=== PATIENT | male | born 1960 | race Caucasian/White ===

== ENCOUNTER 2016-10-27 14:31 | Emergency (ER) | payer SELFPAY ==
[~2016-10-27] VITALS: Ht 182.9 cm; Wt 70.0 kg
[~2016-10-27 14:31] MED LIST: ALBU8I INH
[2016-10-27 14:33] VITALS: BP 141/93; PULSE 108; RESP 16; TEMP 98.8; O2SAT 96
[2016-10-27] MEDS ORDERED: VENTAER INH (14:44)
--- NOTE | 2016-10-27 15:14 | PD ---
HPI Chief Complaint: Foreign Body Time Seen by Provider: 15:02 Travel History International Travel<30 days: No Contact w/Intl Traveler<30days: No Traveled to known affect area: No History of Present Illness HPI 56-year-old male presents to the emergency room for evaluation of possible foreign body to his right heel. Patient states either 4 or 5 weeks ago he believes he stepped on a piece of glass in his house. Since then he has had a worsening painful lesion. Occasionally it drains purulent discharge. Patient has moderate pain worse with ambulation. He is placed a small cushion in his shoe to help alleviate the pain. He has not taken anything for symptoms. Patient went to an urgent care center and they referred him to the emergency room. He denies history of diabetes. PFSH Past Medical History Asthma: Yes COPD: Yes Diminished Hearing: No Immunizations Current: Yes ?: Not Social History Alcohol Use: Yes (5 BEERS A DAY) Tobacco Use: Yes (1PPD) Substance Use: No Allergies-Medications (Allergen,Severity, Reaction): Coded Allergies: Benzoin (Verified Allergy, Severe, 10/27/16) Reported Meds & Prescriptions Reported Meds & Active Scripts Active Cipro (Ciprofloxacin HCl) 500 Mg Tab 500 Mg PO Q12HR 7 Days Reported Ventolin Hfa 18 GM Inh (Albuterol Sulfate) 90 Mcg/Act Aer 2 Puff INH Q4H PRN Review of Systems Except as stated in HPI: all other systems reviewed are Neg Physical Exam Narrative GENERAL: Well-nourished, well-developed male in no acute distress. Afebrile. Ambulatory. SKIN: Focused skin assessment warm/dry. There is an indurated area in the right heel which measures about 2 cm in diameter. It is fluctuant but there is no pointing or drainage. There is a zone of inflammation around it but no lymphangitis. HEAD: Normocephalic. EYES: No scleral icterus. No injection or drainage. NECK: Supple, trachea midline. No JVD or lymphadenopathy. CARDIOVASCULAR: Regular rate and rhythm without murmurs, gallops, or rubs. RESPIRATORY: Breath sounds equal bilaterally. No accessory muscle use. Coarse lung sounds bilaterally. PSYCHIATRIC: No delusional thought processes. No hallucinations. Data Data Last Documented VS Vital Signs Date Time Temp Pulse Resp B/P Pulse Ox O2 Delivery O2 Flow Rate FiO2 10/27/16 14:33 98.8 108 16 141/93 96 Orders Foot, Heel Only ([id number]) (10/27/16 ) Lidocai-Epi 1%-1:100,000 Inj (Xylocaine- (10/27/16 15:45) MDM Medical Decision Making Medical Screen Exam Complete: Yes Emergency Medical Condition: Yes Medical Record Reviewed: Yes Differential Diagnosis Plantar wart versus foreign body versus abscess Narrative Course 56-year-old male presents to the emergency room for evaluation of a possible foreign body to his right heel has been present for 5 weeks after stepping on glass. It is painful. Physical exam reveals a 2 cm area of induration on the right plantar heel. X-ray shows no foreign body. Likely plantar wart but patient reports occasional purulent discharge so abscess incision and drainage will be performed. Upon incision and drainage, a large capsule was obtained. There did not appear to be any purulent drainage. A culture is obtained anyway. Patient will be discharged with empirical ciprofloxacin. Told to follow up with the laboratory sample carrier or return to the emergency room for worsening symptoms. He understands and agrees to plan. Procedures Procedure Narrative INCISION AND DRAINAGE OF ABSCESS: The area was prepped and was sterilely draped. A subcutaneous wheal of 1% lidocaine with epinephrine with a total number 1 mL was used to anesthetize the area properly. A number 11 scalpel was used to make a 1 cm incision across the area of the abscess. The abscess was drained, complex loculations were broken down, and irrigated with normal saline. Cultures were obtained. Sterile dressing applied Diagnosis Primary Impression: Plantar wart of right foot Referrals: Import Coordinator Primary Care Physician Patient Instructions: General Instructions, Plantar Wart (ED) Additional Instructions: Rest and drink plenty of fluids. Take Cipro as directed, until gone. Take with probiotics. Follow up with a primary care physician. Return to emergency room for worsening symptoms, as discussed. Scripts Ciprofloxacin (Cipro)500 Mg Bvd806 Mg PO Q12HR 7 Days Ref 0 Prov:Karolina Siddiqui MD 10/27/16 Disposition: 01 DISCHARGE HOME Condition: Stable Crystal Proctor October 27, 2016 15:14
--- NOTE | 2016-10-27 15:28 | RADHPO ---
EXAM DATE/TIME: 10/27/2016 14:57 [facility] COMPARISON: No previous studies available for comparison. INDICATIONS : Patient has pain in posterior calcaneous region. He states he thinks he stepped on glass when he brok e a door on his entertainment center and it has hurt for a month while standing. MEDICAL HISTORY : None. SURGICAL HISTORY : None. ENCOUNTER: Initial ACUITY: 1 month PAIN SCORE: 9/10 LOCATION: Right calcaneous. FINDINGS: Two view examination of the right heel demonstrates the trabecula to be intact with no evidence of fr acture. There is a normal calcaneal angle. The soft tissues are of normal thickness. CONCLUSION: No acute fracture. Caleb Hinton MD on October 27, 2016 at 15:24 Board Certified Radiologist. This report was verified electronically.
[2016-10-27] MEDS ORDERED: CIPR-9 PO (15:38)
[2016-10-27] MEDS ORDERED: LIDOCAINE 1%/EPINEPHrine 1:100,000 SOLN 20 ML VIAL INFIL ONE (15:45)
[2016-10-27 15:57] VITALS: BP 149/106; PULSE 88; RESP 18; O2SAT 95
== END 2016-10-27 15:59 | disposition home or self-care (01) ==
LOC: PHEFT 14:31
DX: B07.0 Plantar wart (principal); F17.200 Nicotine dependence, unspecified, uncomplicated; Z79.899 Other long term (current) drug therapy; Z88.8 Allergy status to other drugs, medicaments and biological substances
CPT/HCPCS: 10060; 73650; 86403; 87070; 87077; 87186

== ENCOUNTER 2017-11-24 12:21 | Emergency (ER) | payer OTHER ==
[~2017-11-24] VITALS: Ht 182.9 cm; Wt 65.1 kg
[~2017-11-24 12:21] MED LIST changes: -ALBU8I INH; +CIPR-9 PO; +VENTAER INH
[2017-11-24 12:28] VITALS: BP 173/101; PULSE 98; RESP 16; TEMP 98.2; O2SAT 99
--- NOTE | 2017-11-24 12:37 | PD ---
HPI Chief Complaint: Dizziness Time Seen by Provider: 12:35 Travel History International Travel<30 days: No Contact w/Intl Traveler<30days: No Traveled to known affect area: No History of Present Illness HPI Patient comes in complaining of generalized fatigue which is worsening and increasing over the past 2 weeks. However according to patient he has had this for at least a year in duration. However lately he has noted some abdominal pain near his right upper quadrant and suprapubic region, however this has been intermittently occurring and he normally just waits until the pain goes away on its own. Patient describes the pain as sharp, nonradiating, 8 out of 10 when it occurs, associated with some nausea but no vomiting or diarrhea. The patient does also complain of weight loss over the past couple of months which is unintentional. And gives a history of hepatitis C, which has not been treated, and the patient is concerned that this may be what is happening now. Stated allergy to benzoin, thorax, and balsam Past medical history significant for COPD, left knee arthroscopy, 1 pack a day smoker, [facility] Past Medical History Asthma: Yes COPD: Yes Diminished Hearing: No Immunizations Current: Yes Social History Alcohol Use: Yes (5 BEERS A DAY) Tobacco Use: Yes (1PPD) Substance Use: No Allergies-Medications (Allergen,Severity, Reaction): Coded Allergies: benzoin (Unverified Allergy, Severe, RASH, 11/24/17) ness balsam (Unverified Allergy, Severe, UNKNOWN PER PT, 11/24/17) storax (Unverified Allergy, Unknown, DOES NOT KNOW, 11/24/17) Reported Meds & Prescriptions Reported Meds & Active Scripts Active No Active Prescriptions or Reported Medications Review of Systems Except as stated in HPI: all other systems reviewed are Neg General / Constitutional: Positive: Weight Loss, Other (Generalized fatigue and weakness), No: Fever Eyes: No: Visual changes HENT: No: Headaches Cardiovascular: No: Chest Pain or Discomfort Respiratory: No: Shortness of Breath Gastrointestinal: Positive: Nausea Genitourinary: No: Dysuria Musculoskeletal: No: Pain Skin: No Rash Neurologic: No: Weakness Psychiatric: No: Depression Endocrine: No: Polydipsia Hematologic/Lymphatic: No: Easy Bruising Physical Exam Narrative GENERAL: Thin, emaciated appearing male SKIN: Warm and dry. HEAD: Atraumatic. Normocephalic. EYES: Pupils equal and round. No scleral icterus. No injection or drainage. ENT: No nasal bleeding or discharge. Mucous membranes pink and moist. NECK: Trachea midline. No JVD. CARDIOVASCULAR: Regular rate and rhythm. RESPIRATORY: No accessory muscle use. Clear to auscultation. Breath sounds equal bilaterally. GASTROINTESTINAL: Abdomen soft, tenderness to percussion over right upper quadrant suprapubic as well as left lower quadrant area , nondistended. MUSCULOSKELETAL: Extremities without clubbing, cyanosis, or edema. No obvious deformities. NEUROLOGICAL: Awake and alert. No obvious cranial nerve deficits. Motor grossly within normal limits. Five out of 5 muscle strength in the arms and legs. Normal speech. PSYCHIATRIC: Appropriate mood and affect; insight and judgment normal. Data Data Last Documented VS Vital Signs Date Time Temp Pulse Resp B/P (MAP) Pulse Ox O2 Delivery O2 Flow Rate FiO2 11/24/17 13:50 81 16 166/92 (116) 100 Room Air 11/24/17 12:28 98.2 Orders Orders Electrocardiogram (11/24/17 12:42) Complete Blood Count With Diff (11/24/17 12:42) Comprehensive Metabolic Panel (11/24/17 12:42) Creatine Kinase (Cpk) (11/24/17 12:42) Ckmb (Isoenzyme) Profile (11/24/17 12:42) Troponin I (11/24/17 12:42) B-Type Natriuretic Peptide (11/24/17 12:42) Prothrombin Time / Inr (Pt) (11/24/17 12:42) Act Partial Throm Time (Ptt) (11/24/17 12:42) Lipase (11/24/17 12:42) Urinalysis - C+S If Indicated (11/24/17 12:42) Ammonia (11/24/17 12:42) Thyroid Stimulating Hormone (11/24/17 12:42) Chest, Single Ap (11/24/17 12:42) Type And Screen (11/24/17 12:42) Drug Screen, Random Urine (11/24/17 12:42) Alcohol (Ethanol) (11/24/17 12:42) Salicylates (Aspirin) (11/24/17 12:42) Tylenol (Acetaminophen) (11/24/17 12:42) Iv Access Insert/Monitor (11/24/17 12:42) Ecg Monitoring (11/24/17 12:42) Oximetry (11/24/17 12:42) NPO (11/24/17 12:42) Sodium Chloride 0.9% Flush (Ns Flush) (11/24/17 12:45) Ondansetron Odt (Zofran Odt) (11/24/17 13:30) CKMB (11/24/17 13:04) CKMB% (11/24/17 13:04) Urine Culture (11/24/17 13:50) Electrocardiogram (11/24/17 14:22) Potassium, Serum (K) (11/24/17 17:22) Calcium Gluconate Inj (Calcium Gluconate (11/24/17 14:30) Insulin Human Regular Inj (Novolin R Inj (11/24/17 14:30) Sodium Bicarbonate 8.4% Inj (Sodium Bica (11/24/17 14:30) Albuterol Concentrated Neb (Albuterol Co (11/24/17 14:30) Dextrose 50% In Ti (Vial) Inj (D50w (Vi (11/24/17 14:45) Ct Abd/Pel W/O Iv Contrast (11/24/17 14:37) Urinary Catheter Insert/Apply (11/24/17 15:32) Admit To Inpatient (11/24/17 ) Code Status (11/24/17 15:35) Vital Signs (Adult) Q4H (11/24/17 15:35) Activity Oob With Assistance (11/24/17 15:35) Film Crew Member / Telemetry .CONTINUOUS (11/24/17 15:35) Diet Heart Healthy (11/24/17 Dinner) Sodium Chloride 0.9% Flush (Ns Flush) (11/24/17 15:45) Sodium Chloride 0.9% Flush (Ns Flush) (11/24/17 21:00) Acetaminophen (Tylenol) (11/24/17 15:45) Ondansetron Inj (Zofran Inj) (11/24/17 15:45) Basic Metabolic Panel (Bmp) (11/25/17 06:00) Complete Blood Count With Diff (11/25/17 06:00) Electrocardiogram (11/24/17 15:35) Pt Request For Service (11/24/17 15:35) Scd Bilateral/Knee High REINALDO.BID (11/24/17 15:35) Naloxone Inj (Narcan Inj) (11/24/17 15:45) Docusate Sodium-Senna (Elena-Colace) (11/24/17 21:00) Magnesium Hydroxide Liq (Milk Of Magnesi (11/24/17 15:45) Inpatient Certification (11/24/17 ) Consult Urology (11/24/17 ) Labs Laboratory Tests Test 11/24/17 13:04 11/24/17 13:50 White Blood Count 5.6 TH/MM3 Red Blood Count 2.92 MIL/MM3 Hemoglobin 9.3 GM/DL Hematocrit 26.5 % Mean Corpuscular Volume 90.6 FL Mean Corpuscular Hemoglobin 31.8 PG Mean Corpuscular Hemoglobin Concent 35.2 % Red Cell Distribution Width 13.1 % Platelet Count 353 TH/MM3 Mean Platelet Volume 7.8 FL Neutrophils (%) (Auto) 80.9 % Lymphocytes (%) (Auto) 11.6 % Monocytes (%) (Auto) 5.5 % Eosinophils (%) (Auto) 1.6 % Basophils (%) (Auto) 0.4 % Neutrophils # (Auto) 4.6 TH/MM3 Lymphocytes # (Auto) 0.6 TH/MM3 Monocytes # (Auto) 0.3 TH/MM3 Eosinophils # (Auto) 0.1 TH/MM3 Basophils # (Auto) 0.0 TH/MM3 CBC Comment DIFF FINAL Differential Comment Prothrombin Time 9.5 SEC Prothromb Time International Ratio 0.9 RATIO Activated Partial Thromboplast Time 25.8 SEC Blood Urea Nitrogen 84 MG/DL Creatinine 11.00 MG/DL Random Glucose 83 MG/DL Total Protein 7.8 GM/DL Albumin 3.5 GM/DL Calcium Level 8.3 MG/DL Alkaline Phosphatase 92 U/L Aspartate Amino Transf (AST/SGOT) 17 U/L Alanine Aminotransferase (ALT/SGPT) 14 U/L Total Bilirubin 0.4 MG/DL Sodium Level 127 MEQ/L Potassium Level 6.5 MEQ/L Chloride Level 95 MEQ/L Carbon Dioxide Level 15.3 MEQ/L Anion Gap 17 MEQ/L Estimat Glomerular Filtration Rate 5 ML/MIN Ammonia 15 MCMOL/L Total Creatine Kinase 125 U/L Creatine Kinase MB 6.6 NG/ML Troponin I LESS THAN 0.02 NG/ML B-Type Natriuretic Peptide 126 PG/ML Lipase 373 U/L Thyroid Stimulating Hormone 3rd Gen 2.570 uIU/ML Salicylates Level 5.0 MG/DL Acetaminophen Level LESS THAN 2.0 MCG/ML Ethyl Alcohol Level LESS THAN 3 MG/DL Urine Collection Type CLEAN CATCH Urine Color YELLOW Urine Turbidity CLEAR Urine pH 6.0 Urine Specific [place] LESS/EQUAL 1.005 Urine Protein TRACE mg/dL Urine Glucose (UA) NEG mg/dL Urine Ketones NEG mg/dL Urine Occult Blood LARGE Urine Nitrite NEG Urine Bilirubin NEG Urine Urobilinogen 0.2 MG/DL Urine Leukocyte Esterase NEG Urine RBC 10-14 /hpf Urine WBC 0-2 /hpf Urine Squamous Epithelial Cells 0-5 /hpf Urine Amorphous Sediment MOD Urine Bacteria MOD /hpf Microscopic Urinalysis Comment CULTURE INDICATED Urine Collection Time 1350 Urine Opiates Screen NEG Urine Barbiturates Screen NEG Urine Amphetamines Screen NEG Urine Benzodiazepines Screen NEG Urine Cocaine Screen NEG Urine Cannabinoids Screen NEG MDM Medical Decision Making Medical Screen Exam Complete: Yes Emergency Medical Condition: Yes Medical Record Reviewed: Yes Interpretation(s) EKG shows a normal sinus rhythm, 86 bpm, normal intervals, no evidence of any ST elevation ME pattern, some LVH pattern noted, some motion artifact noted as well Pulse ox shows excellent Pleth wave, room air oximetry shows readings between 97 and 100 which is within normal limits and without any evidence of hypoxemia. Differential Diagnosis Anemia versus dehydration versus hepatitis active versus pancreatitis versus pancreatic CA versus colitis versus diverticulitis versus UTI Narrative Course No leukocytosis on CBC, anemia of 9/26, normal platelet count, no neutrophilia Coagulation profile is within normal limits UA significant for UTI TSH screen normal Normal liver and pancreatic enzymes First set of cardiac enzymes negative Multiple electrolyte abnormalities including hyponatremia 127, hyperkalemia 6.5 , bicarb of 15, anion gap of 17, BUN of 84, creatinine of 11, GFR of 5 Physician Communication Physician Communication Call has been made out to [facility] for admission, however it is noted that the patient is refusing to be transferred by ambulance and once to go by private vehicle. Patient has been advised that this is not only a poor decision on his part but he can also effect and cause accidents EN route if he has a hyperkalemic episode that causes his heart to stop eating he will did not lose control of his vehicle and produce multiple accidents. This was all discussed with him at length..... Patient has been advised and although he is making an unfortunate decision he has all the he is mental capacity to make decisions on his behalf of his care. Patient was on the phone arguing with someone else and the patient has been advised multiple times by nursing staff as well as myself, patient continues to want to go take care of his dogs before he gets hospitalized. Dr. Graham from [facility] has already accepted him and written orders for him, everything is in place for the patient to be transferred to [facility] in [facility] where he may not only need a [place] but he also may need a Vas-Cath and the need to be dialyzed emergently AMA: The risks of leaving against medical advice without further evaluation treatment were discussed with the patient. These risks include cardiac dysfunction, cardiac dysrhythmia, possible heart attack, possible stroke or . The patient indicated understanding of these risks and appeared to have the capacity to make this decision. Diagnosis Primary Impression: Acute renal failure Additional Impressions: Hyponatremia Hyperkalemia Anion gap acidosis Anemia Obstructive hydronephrosis with renal failure Admitting Information Admitting Physician Requests: Admit Scripts No Active Prescriptions or Reported Meds Disposition: 07 AGAINST MEDICAL ADVICE Darvin Jaimes MD Nov 24, 2017 12:36
[2017-11-24] MEDS ORDERED: SODIUM CHLORIDE 0.9% FLUSH 10 ML FLUSH IV FLUSH PRN ×2 (12:45→15:45)
[2017-11-24 13:15] VITALS: O2SAT 100
[2017-11-24] MEDS ORDERED: ONDANSETRON ODT 4 MG TAB PO ONE (13:30)
[2017-11-24 13:37] LABS: AUTOMATED NEUTROPHIL # 4.6 TH/MM3 (1.8-7.7); BASOPHIL % 0.4 % (0.0-2.0); EOSINOPHIL # 0.1 TH/MM3 (0-0.4); EOSINOPHIL % 1.6 % (0.0-4.0); HEMATOCRIT 26.5 % (39.0-51.0); HEMOGLOBIN 9.3 GM/DL (13.0-17.0); LYMPH % 11.6 % (9.0-44.0); LYMPHOCYTE # 0.6 TH/MM3 (1.0-4.8); MEAN CELL VOLUME 90.6 FL (80.0-100.0); MEAN CORPUSCULAR HEMOGLOBIN 31.8 PG (27.0-34.0); MEAN CORPUSCULAR HGB CONC 35.2 % (32.0-36.0); MEAN PLATELET VOLUME 7.8 FL (7.0-11.0); MONO % 5.5 % (0.0-8.0); MONOCYTE # 0.3 TH/MM3 (0-0.9); NEUT % 80.9 % (16.0-70.0); PLATELET COUNT 353 TH/MM3 (150-450); RED BLOOD COUNT 2.92 MIL/MM3 (4.50-5.90); RED CELL DISTRIBUTION WIDTH 13.1 % (11.6-17.2); WHITE BLOOD COUNT 5.6 TH/MM3 (4.0-11.0)
[2017-11-24 13:50] VITALS: BP 166/92; PULSE 81; RESP 16; O2SAT 100
[2017-11-24 13:50] LABS: INTERNATIONAL NORMALIZED RATIO 0.9 RATIO; PROTHROMBIN TIME - PATIENT 9.5 SEC (9.8-11.6)
[2017-11-24 13:59] LABS: CHLORIDE 95 MEQ/L (98-107); SODIUM (NA) 127 MEQ/L (136-145)
[2017-11-24 14:03] LABS: ALBUMIN 3.5 GM/DL (3.4-5.0); BICARBONATE 15.3 MEQ/L (21.0-32.0); CALCIUM 8.3 MG/DL (8.5-10.1); GLUCOSE,RANDOM 83 MG/DL (74-106)
[2017-11-24 14:04] LABS: BLOOD UREA NITROGEN 84 MG/DL (7-18)
[2017-11-24 14:06] LABS: ALT (GPT) 14 U/L (12-78); AST (GOT) 17 U/L (15-37); GLOMERULAR FILTRATION RATE 5 ML/MIN (>89)
[2017-11-24 14:07] LABS: TOTAL BILIRUBIN ADULT 0.4 MG/DL (0.2-1.0)
[2017-11-24 14:08] LABS: TOTAL PROTEIN 7.8 GM/DL (6.4-8.2)
[2017-11-24 14:09] LABS: ALKALINE PHOSPHATASE 92 U/L (45-117)
[2017-11-24 14:10] LABS: BILIRUBIN, URINE NEG (NEG); BLOOD, URINE LARGE (NEG); GLUCOSE,URINE NEG (NEG); KETONE, URINE NEG (NEG); NITRITE,URINE NEG (NEG); URINE COLOR YELLOW (YELLW/STRAW); URINE LEUKOCYTE ESTERASE NEG (NEG)
[2017-11-24 14:12] LABS: TROPONIN I LESS THAN 0.02 NG/ML (0.02-0.05)
[2017-11-24 14:15] LABS: AMORPHOUS SEDIMENT, URINE MOD; BACTERIA, URINE MOD /hpf; SQUAMOUS EPITHELIAL CELL URINE 0-5 /hpf (0-5); WBC, URINE 0-2 /hpf (0-5)
[2017-11-24 14:28] LABS: ACETAMINOPHEN LESS THAN 2.0 MCG/ML (10.0-30.0)
[2017-11-24] MEDS ORDERED: SODIUM BICARBONATE 8.4% SOLN 50 MEQ/50 ML VIAL SLOW IVP ONE (14:30)
[2017-11-24] MEDS ORDERED: CALCIUM GLUCONATE 10% 1 GM/10 ML VIAL SLOW IVP ONE (14:30)
[2017-11-24] MEDS ORDERED: INSULIN HUMAN REGULAR 1,000 UNITS/10 ML VIAL IV PUSH ONE (14:30)
[2017-11-24] MEDS ORDERED: RESP: ALBUTEROL CONC 2.5 MG/0.5 ML NEB INH ONE (14:30)
--- NOTE | 2017-11-24 14:39 | RADRPT ---
EXAM DATE: 11/24/2017 1:04 PM EDT AGE/SEX: 57 years / Male INDICATIONS: Nausea and fatigue. CLINICAL DATA: This is the patient's initial encounter. Patient reports that signs and symptoms have been present for 4 - 6 months and indicates a pain score of 0/10. MEDICAL/SURGICAL HISTORY: None. None. COMPARISON: No prior exams available for comparison. FINDINGS: The lungs are clear without infiltrate, nodule, or mass. There is no appreciable pleural effusion for technique. Heart and mediastinum are unremarkable. CONCLUSION: No acute cardiopulmonary disease. Electronically signed by: Leora Vogt MD 11/24/2017 1:05 PM EDT
[2017-11-24] MEDS ORDERED: DEXTROSE 50% IN WATER 50 ML VIAL(D50) IV PUSH ONE (14:45)
--- NOTE | 2017-11-24 15:22 | RADRPT ---
EXAM DATE: 11/24/2017 3:14 PM EDT AGE/SEX: 57 years / Male INDICATIONS: Intermittent right upper quadrant pain and suprapubic pain x 2 weeks. Difficulty urinat ing. General weakness. CLINICAL DATA: This is the patient's initial encounter. Patient reports that signs and symptoms have been present for 2 weeks and indicates a pain score of 8/10. MEDICAL/SURGICAL HISTORY: Chronic obstructive pulmonary disease. Hepatitis C. Asthma. None. RADIATION DOSE: 6.85 CTDI (mGy) COMPARISON: No prior exams available for comparison. TECHNIQUE: Multiple contiguous axial images were obtained through the abdomen. Images were obtained using multiple row detector helical technique. Using dose reduction techniques, radiation dose was ke pt as low as reasonably achievable to obtain optimal diagnostic quality images. FINDINGS: The urinary bladder is prominently dilated and prominently trabeculated. Severe bilateral hydronephro sis is present. The appearance would be most consistent with lateral obstruction. Elsewhere on the exam, the liver, spleen, pancreas and adrenals are unremarkable. The bowel structure s are nondilated. No focal inflammatory changes are appreciated. The retroperitoneum is benign in nico earance. In the pelvis, no mass or free fluid is appreciated. The inguinal regions are clear. Bony elements ar e benign. CONCLUSION: Pronounced bladder dilatation and bilateral hydronephrosis. Electronically signed by: Tristen Teresa MD 11/24/2017 3:21 PM EDT
[2017-11-24] MEDS ORDERED: ONDANSETRON HCL 4 MG/2 ML VIAL IVP PRN (15:45)
[2017-11-24] MEDS ORDERED: MAGNESIUM HYDROXIDE SUSP 30 ML CUP PO PRN (15:45)
[2017-11-24] MEDS ORDERED: NALOXONE HCL 0.4 MG/ML AMP IV PUSH PRN (15:45)
[2017-11-24] MEDS ORDERED: ACETAMINOPHEN 325 MG TAB PO PRN (15:45)
[2017-11-24 15:55] VITALS: BP 191/113; PULSE 96; RESP 16; O2SAT 99
[2017-11-24] MEDS ORDERED: SODIUM CHLORIDE 0.9% FLUSH 10 ML FLUSH IV FLUSH SCH (21:00)
[2017-11-24] MEDS ORDERED: DOCUSATE SODIUM 50 MG/SENNA 8.6 MG TAB PO SCH (21:00)
--- NOTE | 2017-11-25 15:07 | EKG ---
Date Performed: 11/24/2017 Time Performed: 14:34:23 PTAGE: 57 years EKG: Sinus rhythm ABNORMAL RHYTHM ECG INTERPRETATION BASED ON A DEFAULT AGE OF 40 YEARS PREVIOUS TRACING : 11/24/2017 12.51 Since the previous tracing, no significant change not ed DOCTOR: Anatoliy Samayoa Interpretating Date/Time 11/25/2017 15:06:46
--- NOTE | 2017-11-25 15:11 | EKG ---
Date Performed: 11/24/2017 Time Performed: 12:51:23 PTAGE: 57 years EKG: Sinus rhythm NORMAL ECG PREVIOUS TRACING : 05/15/2013 03.53 Since the previous tracing, no significant change noted DOCTOR: Anatoliy Samayoa Interpretating Date/Time 11/25/2017 15:10:18
== END 2017-11-24 16:15 | disposition left against medical advice (07) ==
LOC: PHED 12:21
DX: N17.9 Acute kidney failure, unspecified (principal); E87.1 Hypo-osmolality and hyponatremia; E87.5 Hyperkalemia; E87.2 Acidosis; D64.9 Anemia, unspecified; N13.30 Unspecified hydronephrosis; R82.99 Other abnormal findings in urine; Z53.29 Procedure and treatment not carried out because of patient's decision for other reasons; B19.20 Unspecified viral hepatitis C without hepatic coma; J44.9 Chronic obstructive pulmonary disease, unspecified; F17.210 Nicotine dependence, cigarettes, uncomplicated; Z88.8 Allergy status to other drugs, medicaments and biological substances
CPT/HCPCS: 71045; 74176; 80053; 80307; 81001; 82140; 82550; 82552; 83690; 83880; 84443; 84484; 85025; 85610; 85730; 86850; 86900; 86901; 87086; 93005; 94664; 96374; 96375; 99285; J0610; J1815; J7611

== ENCOUNTER 2017-11-25 09:46 | Inpatient (IN) | payer OTHER ==
[~2017-11-25] VITALS: Ht 182.9 cm; Wt 65.0 kg
[2017-11-25 09:49] VITALS: BP 199/107; PULSE 99; RESP 20; TEMP 98.3; O2SAT 100
--- NOTE | 2017-11-25 10:25 | PD ---
HPI Chief Complaint: Dizziness Time Seen by Provider: 10:02 Travel History International Travel<30 days: No Contact w/Intl Traveler<30days: No Traveled to known affect area: No History of Present Illness HPI The patient is a 57-year-old male who presents to the emergency department for difficulty urinating. The patient was evaluated at [facility] yesterday and was noted to be in acute renal failure with a creatinine of 11 and an elevated potassium of 6.5. The patient was going to be admitted to [facility] yesterday, Dr. Jaimes had discussed the patient with nephrology, urology, and Dr. Graham. However, the patient had to leave AGAINST MEDICAL ADVICE so he could take care of his dogs and stated he would be back in the a.m. The patient states he has had a difficulty with urination since he was a child, he had bedwetting issues at the age of 4. He states he had several instrumentation procedures at the age of 4 and has had difficulty urinating since then. The patient states when he urinates he has a pinch the pain is nursing home down, then has to squeeze the head to urinate. He states he has difficulty urinating fully and has had a distended lower abdomen for the last 4-5 years which she initially attributed to drinking beer. He does complain of lethargy and body aches. He denies any acute chest pain or shortness of breath. Symptoms are moderate. The patient also notes an intermittent history of rectal bleeding which he attributes to hemorrhoids. PFSH Past Medical History Asthma: Yes COPD: Yes Diminished Hearing: No Immunizations Current: Yes Tetanus Vaccination: < 5 Years ?: Not Social History Alcohol Use: Yes (BEER DAILY) Tobacco Use: Yes (1.5 PPD) Substance Use: No Allergies-Medications (Allergen,Severity, Reaction): Coded Allergies: benzoin (Unverified Allergy, Severe, RASH, 11/25/17) ness balsam (Unverified Allergy, Severe, UNKNOWN PER PT, 11/25/17) storax (Unverified Allergy, Unknown, DOES NOT KNOW, 11/25/17) Reported Meds & Prescriptions Reported Meds & Active Scripts Active No Active Prescriptions or Reported Medications Review of Systems Except as stated in HPI: all other systems reviewed are Neg General / Constitutional: No: Fever, Chills Cardiovascular: No: Chest Pain or Discomfort Respiratory: No: Shortness of Breath Gastrointestinal: Positive: Nausea, Abdominal Pain, No: Vomiting Genitourinary: Positive: Decreased Urinary Output, Hesitancy, Dribbling, Pelvic Pain Musculoskeletal: No: Edema Physical Exam Narrative GENERAL: Awake, alert, pleasant 57-year-old male who appears his stated age and is in no acute respiratory distress. SKIN: Focused skin assessment warm/dry. HEAD: Atraumatic. Normocephalic. EYES: Pupils equal and round. Mild pallor. ENT: No nasal bleeding or discharge. Mucous membranes pink and moist. NECK: Trachea midline. No JVD. CARDIOVASCULAR: Regular rate and rhythm. No murmur appreciated. Heart rate in the 90s. RESPIRATORY: No accessory muscle use. Clear to auscultation. Breath sounds equal bilaterally. GASTROINTESTINAL: Abdomen soft, reveals a distended bladder that is above the umbilicus. MUSCULOSKELETAL: No obvious deformities. No clubbing. No cyanosis. No edema. NEUROLOGICAL: Awake and alert. No obvious cranial nerve deficits. Motor grossly within normal limits. Normal speech. PSYCHIATRIC: Appropriate mood and affect; insight and judgment normal. Data Data Last Documented VS Vital Signs Date Time Temp Pulse Resp B/P (MAP) Pulse Ox O2 Delivery O2 Flow Rate FiO2 11/25/17 11:18 82 156/92 (113) 11/25/17 09:49 98.3 20 100 Orders Orders Complete Blood Count With Diff (11/25/17 10:18) Comprehensive Metabolic Panel (11/25/17 10:18) Magnesium (Mg) (11/25/17 10:18) Phosphorus (Po4) (11/25/17 10:18) Urinary Catheter Insert/Apply (11/25/17 10:18) Admit To Inpatient (11/25/17 ) Code Status (11/25/17 11:41) Vital Signs (Adult) Q4H (11/25/17 11:41) Activity Oob With Assistance (11/25/17 11:41) Electrician / Telemetry .CONTINUOUS (11/25/17 11:41) Diet Heart Healthy (11/25/17 Lunch) Sodium Chloride 0.9% Flush (Ns Flush) (11/25/17 11:45) Sodium Chloride 0.9% Flush (Ns Flush) (11/25/17 21:00) Acetaminophen (Tylenol) (11/25/17 11:45) Temazepam (Restoril) (11/25/17 11:45) Basic Metabolic Panel (Bmp) (11/26/17 06:00) Complete Blood Count With Diff (11/26/17 06:00) Urinalysis - C+S If Indicated (11/25/17 11:41) Chest, Single Ap (11/25/17 11:41) Electrocardiogram (11/25/17 11:41) Pt Request For Service (11/25/17 11:41) Scd Bilateral/Knee High REINALDO.BID (11/25/17 11:41) Naloxone Inj (Narcan Inj) (11/25/17 11:45) Magnesium Hydroxide Liq (Milk Of Magnesi (11/25/17 11:45) Inpatient Certification (11/25/17 ) Consult Urology (11/25/17 ) Sodium Chlor 0.9% 1000 Ml Inj (Ns 1000 M (11/25/17 11:45) Clonidine (Catapres) (11/25/17 11:45) Acetamin-Hydrocod 325-5 Mg ([place] 5-325 (11/25/17 11:45) Ondansetron Odt (Zofran Odt) (11/25/17 11:45) Hydromorphone Pf Inj (Dilaudid Pf Inj) (11/25/17 11:45) Intake + Output REINALDO.QSHIFT (11/25/17 12:13) Neuro Checks Q4H (11/25/17 12:13) Alcohol Withdrawal Asmt-Ciwa Q4HX18 (11/25/17 12:13) ^ Seizure Precautions (11/25/17 12:13) Folic Acid (Folate) (11/26/17 09:00) Thiamine (Vit B1) (Vitamin B1) (11/26/17 09:00) Multivitamin Inj (Mvi-12 Inj)... (11/25/17 12:15) Pantoprazole (Protonix) (11/26/17 09:00) Flumazenil Inj (Romazicon Inj) (11/25/17 12:15) Lorazepam (Ativan) (11/25/17 12:15) Lorazepam Inj (Ativan Inj) (11/25/17 12:15) Lorazepam (Ativan) (11/25/17 12:15) Lorazepam Inj (Ativan Inj) (11/25/17 12:15) Lorazepam Inj (Ativan Inj) (11/25/17 12:15) Lorazepam Inj (Ativan Inj) (11/25/17 12:15) Admit Order (Ed Use Only) (11/25/17 12:19) Labs Laboratory Tests Test 11/25/17 10:30 White Blood Count 5.5 TH/MM3 Red Blood Count 2.82 MIL/MM3 Hemoglobin 8.8 GM/DL Hematocrit 25.9 % Mean Corpuscular Volume 91.7 FL Mean Corpuscular Hemoglobin 31.2 PG Mean Corpuscular Hemoglobin Concent 34.0 % Red Cell Distribution Width 14.1 % Platelet Count 285 TH/MM3 Mean Platelet Volume 7.3 FL Neutrophils (%) (Auto) 73.0 % Lymphocytes (%) (Auto) 12.8 % Monocytes (%) (Auto) 11.3 % Eosinophils (%) (Auto) 2.5 % Basophils (%) (Auto) 0.4 % Neutrophils # (Auto) 4.0 TH/MM3 Lymphocytes # (Auto) 0.7 TH/MM3 Monocytes # (Auto) 0.6 TH/MM3 Eosinophils # (Auto) 0.1 TH/MM3 Basophils # (Auto) 0.0 TH/MM3 CBC Comment DIFF FINAL Differential Comment Blood Urea Nitrogen 82 MG/DL Creatinine 10.55 MG/DL Random Glucose 92 MG/DL Total Protein 7.4 GM/DL Albumin 3.4 GM/DL Calcium Level 8.4 MG/DL Phosphorus Level 8.6 MG/DL Magnesium Level 2.4 MG/DL Alkaline Phosphatase 89 U/L Aspartate Amino Transf (AST/SGOT) 12 U/L Alanine Aminotransferase (ALT/SGPT) 13 U/L Total Bilirubin 0.3 MG/DL Sodium Level 128 MEQ/L Potassium Level 5.1 MEQ/L Chloride Level 94 MEQ/L Carbon Dioxide Level 18.3 MEQ/L Anion Gap 16 MEQ/L Estimat Glomerular Filtration Rate 5 ML/MIN MDM Medical Decision Making Medical Screen Exam Complete: Yes Emergency Medical Condition: Yes Medical Record Reviewed: Yes Interpretation(s) Laboratory Tests Test 11/25/17 10:30 White Blood Count 5.5 TH/MM3 Red Blood Count 2.82 MIL/MM3 Hemoglobin 8.8 GM/DL Hematocrit 25.9 % Mean Corpuscular Volume 91.7 FL Mean Corpuscular Hemoglobin 31.2 PG Mean Corpuscular Hemoglobin Concent 34.0 % Red Cell Distribution Width 14.1 % Platelet Count 285 TH/MM3 Mean Platelet Volume 7.3 FL Neutrophils (%) (Auto) 73.0 % Lymphocytes (%) (Auto) 12.8 % Monocytes (%) (Auto) 11.3 % Eosinophils (%) (Auto) 2.5 % Basophils (%) (Auto) 0.4 % Neutrophils # (Auto) 4.0 TH/MM3 Lymphocytes # (Auto) 0.7 TH/MM3 Monocytes # (Auto) 0.6 TH/MM3 Eosinophils # (Auto) 0.1 TH/MM3 Basophils # (Auto) 0.0 TH/MM3 CBC Comment DIFF FINAL Differential Comment Blood Urea Nitrogen 82 MG/DL Creatinine 10.55 MG/DL Random Glucose 92 MG/DL Total Protein 7.4 GM/DL Albumin 3.4 GM/DL Calcium Level 8.4 MG/DL Phosphorus Level 8.6 MG/DL Magnesium Level 2.4 MG/DL Alkaline Phosphatase 89 U/L Aspartate Amino Transf (AST/SGOT) 12 U/L Alanine Aminotransferase (ALT/SGPT) 13 U/L Total Bilirubin 0.3 MG/DL Sodium Level 128 MEQ/L Potassium Level 5.1 MEQ/L Chloride Level 94 MEQ/L Carbon Dioxide Level 18.3 MEQ/L Anion Gap 16 MEQ/L Estimat Glomerular Filtration Rate 5 ML/MIN Differential Diagnosis Differential diagnosis includes neurogenic bladder, obstructive uropathy, BPH, acute renal failure, hyperkalemia, volume overload, arrhythmia. Narrative Course IV was established, labs are drawn and sent, the patient was placed on cardiac telemetry monitoring and continuous pulse oximetry monitoring. I reviewed the patient's laboratory evaluation and CT findings from yesterday. The patient does have a distended bladder, therefore, Amador catheter will be placed for possible obstructive uropathy. The patient's laboratory evaluation does reveal his potassium has improved to 5.1, however, creatinine is still elevated greater than 10. Amador catheter was placed, the patient at 1.5 L of output, it was then clamped. 45 minutes later it was unclamped and there was another 1000 cc output for a total of 2.5 L. The patient's abdominal distention did improve. [facility] Physician Communication Physician Communication I discussed the patient with Dr. Graham who agrees with admission Diagnosis Primary Impression: Acute renal failure Qualified Codes: N17.9 - Acute kidney failure, unspecified Additional Impression: Obstructive uropathy Admitting Information Admitting Physician Requests: Admit Scripts No Active Prescriptions or Reported Meds Condition: Stable Osorio Quinonez MD Nov 25, 2017 10:25
[2017-11-25 10:46] LABS: BASOPHIL % 0.4 % (0.0-2.0); EOSINOPHIL # 0.1 TH/MM3 (0-0.4); EOSINOPHIL % 2.5 % (0.0-4.0); HEMATOCRIT 25.9 % (39.0-51.0); HEMOGLOBIN 8.8 GM/DL (13.0-17.0); LYMPH % 12.8 % (9.0-44.0); LYMPHOCYTE # 0.7 TH/MM3 (1.0-4.8); MEAN CELL VOLUME 91.7 FL (80.0-100.0); MEAN CORPUSCULAR HEMOGLOBIN 31.2 PG (27.0-34.0); MEAN PLATELET VOLUME 7.3 FL (7.0-11.0); MONO % 11.3 % (0.0-8.0); MONOCYTE # 0.6 TH/MM3 (0-0.9); PLATELET COUNT 285 TH/MM3 (150-450); RED BLOOD COUNT 2.82 MIL/MM3 (4.50-5.90); RED CELL DISTRIBUTION WIDTH 14.1 % (11.6-17.2); WHITE BLOOD COUNT 5.5 TH/MM3 (4.0-11.0)
[2017-11-25 11:09] LABS: ALBUMIN 3.4 GM/DL (3.4-5.0); ALT (GPT) 13 U/L (12-78); AST (GOT) 12 U/L (15-37); BICARBONATE 18.3 MEQ/L (21.0-32.0); BLOOD UREA NITROGEN 82 MG/DL (7-18); CALCIUM 8.4 MG/DL (8.5-10.1); CHLORIDE 94 MEQ/L (98-107); GLOMERULAR FILTRATION RATE 5 ML/MIN (>89); GLUCOSE,RANDOM 92 MG/DL (74-106); MAGNESIUM 2.4 MG/DL (1.5-2.5); PHOSPHORUS 8.6 MG/DL (2.5-4.9); SODIUM (NA) 128 MEQ/L (136-145)
[2017-11-25 11:11] LABS: ALKALINE PHOSPHATASE 89 U/L (45-117); TOTAL BILIRUBIN ADULT 0.3 MG/DL (0.2-1.0); TOTAL PROTEIN 7.4 GM/DL (6.4-8.2)
[2017-11-25 11:15] LABS: CREATININE 10.55 MG/DL (0.60-1.30)
[2017-11-25 11:18] VITALS: BP 156/92; PULSE 82
[2017-11-25] MEDS ORDERED: ONDANSETRON ODT 4 MG TAB SL PRN (11:45)
[2017-11-25] MEDS ORDERED: MAGNESIUM HYDROXIDE SUSP 30 ML CUP PO PRN (11:45)
[2017-11-25] MEDS ORDERED: TEMAZEPAM 15 MG CAP PO PRN (11:45)
[2017-11-25] MEDS ORDERED: ACETAMINOPHEN 325 MG TAB PO PRN (11:45)
[2017-11-25] MEDS ORDERED: SODIUM CHLORIDE 0.9% FLUSH 10 ML FLUSH IV FLUSH PRN (11:45)
[2017-11-25] MEDS ORDERED: HYDROmorphone HCL PF 2 MG/ML VIAL IV PUSH PRN (11:45)
[2017-11-25] MEDS ORDERED: ACETAMINOPHEN/HYDROcodone 325 MG/5 MG TAB PO PRN (11:45)
[2017-11-25] MEDS ORDERED: NALOXONE HCL 0.4 MG/ML AMP IV PUSH PRN (11:45)
--- NOTE | 2017-11-25 12:02 | RADRPT ---
EXAM DATE: 11/25/2017 11:59 AM EDT AGE/SEX: 57 years / Male INDICATIONS: Cough. CLINICAL DATA: This is the patient's initial encounter. Patient reports that signs and symptoms have been present for 1 day and indicates a pain score of 0/10. MEDICAL/SURGICAL HISTORY: None. None. COMPARISON: HPO, CHEST SINGLE AP, 11/24/2017. . FINDINGS: A single AP view of the chest demonstrates the lungs to be symmetrically aerated without evidence of mass, infiltrate or effusion. The cardiomediastinal contours are unremarkable. Osseous structures a re intact. There is hyperinflation. CONCLUSION: Hyperinflation. Electronically signed by: Mateo Perez MD 11/25/2017 12:01 PM EDT
--- NOTE | 2017-11-25 12:02 | HHI.HP ---
HPI Service CP Hospitalists Primary Care Physician No Primary Care Physician Admission Diagnosis Acute kidney injury with obstructive uropathy Chief Complaint: Unable to urinate Travel History International Travel<30 Days: No Contact w/Intl Traveler <30 Da: No Traveled to Known Affected Are: No History of Present Illness This a 57-year-old male patient with past medical history which includes asthma , nicotine dependence, EtOH abuse, hepatitis C, alcoholic fatty liver, hyperlipidemia. The patient presents to the emergency department for difficulty with urinating. The patient was evaluated at [facility] yesterday and was noted to be in acute renal failure with a creatinine of 11 and an elevated potassium of 6.5. The patient was going to be admitted to [facility] yesterday, Dr. Jaimes had discussed the patient with nephrology, urology, and Dr. Graham. However, the patient had to leave AGAINST MEDICAL ADVICE so he could take care of his dogs and stated he would be back in the a.m. The patient states he has had a difficulty with urination since he was a child, he had bedwetting issues at the age of 4. He states he had several instrumentation procedures at the age of 4 and has had difficulty urinating since then. The patient states when he urinates he has a pinch his penis mcc down, then has to squeeze the head to urinate. He states he has difficulty urinating fully and has had a distended lower abdomen for the last 4- 5 years which she initially attributed to drinking beer. He does complain of lethargy and body aches. He denies any acute chest pain, shortness of breath, fevers, chills, diarrhea, constipation, nausea or vomiting. Review of Systems ROS Limitations: Poor Historian (Difficulty with passing urine) Constitutional: DENIES: Fever, Chills Respiratory: COMPLAINS OF: Cough (occational nonproductive- chronic), DENIES: Sputum production, Shortness of breath Cardiovascular: DENIES: Chest pain, Palpitations, Dyspnea on Exertion Gastrointestinal: COMPLAINS OF: Abdominal pain, BRB per rectum Neurologic: DENIES: Abnormal gait, Headache, Localized weakness Psychiatric: DENIES: Anxiety, Confusion, Depression Past Family Social History Past Medical History asthma, nicotine dependence, EtOH abuse, hepatitis C, alcoholic fatty liver, hyperlipidemia, 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 Past Surgical History Vasectomy 2009, right hand repair due to compound breath boxer's fracture 1998, left knee arthroscopic 1989 Reported Medications Denies daily medication use Allergies: Coded Allergies: benzoin (Unverified Allergy, Severe, RASH, 11/25/17) ness balsam (Unverified Allergy, Severe, UNKNOWN PER PT, 11/25/17) storax (Unverified Allergy, Unknown, DOES NOT KNOW, 11/25/17) Family History Noncontributory Social History EtOH use proximally 5 beers per day Tobacco use 1 to 1.5 packs per day Denies illicit drug use Physical Exam Vital Signs Vital Signs Date Time Temp Pulse Resp B/P (MAP) Pulse Ox O2 Delivery O2 Flow Rate FiO2 11/25/17 11:18 82 156/92 (113) 11/25/17 09:49 98.3 99 20 199/107 (137) 100 Physical Exam GENERAL: This is a well-nourished, well-developed patient, in no apparent distress. SKIN: jenkins leathery skin HEAD: Atraumatic. Normocephalic. No temporal or scalp tenderness. EYES: Extraocular motions intact. No scleral icterus. No injection or drainage. CARDIOVASCULAR: Regular rate and rhythm RESPIRATORY: Diminished with scattered expiratory wheezing GASTROINTESTINAL: Abdomen soft, non-tender, nondistended. GENITOURINARY: Iraheta in place draining red bloody urine MUSCULOSKELETAL: Extremities without clubbing, cyanosis, or edema. No joint tenderness, effusion, or edema noted. No calf tenderness. Negative Homans sign bilaterally. NEUROLOGICAL: Awake and alert. No focal deficits noted. Motor and sensory grossly within normal limits. Five out of 5 muscle strength in all muscle groups. Normal speech. Laboratory Laboratory Tests Test 11/25/17 10:30 White Blood Count 5.5 Red Blood Count 2.82 Hemoglobin 8.8 Hematocrit 25.9 Mean Corpuscular Volume 91.7 Mean Corpuscular Hemoglobin 31.2 Mean Corpuscular Hemoglobin Concent 34.0 Red Cell Distribution Width 14.1 Platelet Count 285 Mean Platelet Volume 7.3 Neutrophils (%) (Auto) 73.0 Lymphocytes (%) (Auto) 12.8 Monocytes (%) (Auto) 11.3 Eosinophils (%) (Auto) 2.5 Basophils (%) (Auto) 0.4 Neutrophils # (Auto) 4.0 Lymphocytes # (Auto) 0.7 Monocytes # (Auto) 0.6 Eosinophils # (Auto) 0.1 Basophils # (Auto) 0.0 CBC Comment DIFF FINAL Differential Comment Blood Urea Nitrogen 82 Creatinine 10.55 Random Glucose 92 Total Protein 7.4 Albumin 3.4 Calcium Level 8.4 Phosphorus Level 8.6 Magnesium Level 2.4 Alkaline Phosphatase 89 Aspartate Amino Transf (AST/SGOT) 12 Alanine Aminotransferase (ALT/SGPT) 13 Total Bilirubin 0.3 Sodium Level 128 Potassium Level 5.1 Chloride Level 94 Carbon Dioxide Level 18.3 Anion Gap 16 Estimat Glomerular Filtration Rate 5 Result Diagram: 11/25/17 1030 11/25/17 1030 Imaging Last Impressions Chest X-Ray 11/25/17 1141 Signed Impressions: CONCLUSION: Hyperinflation. Caprini VTE Risk Assessment Caprini VTE Risk Assessment: No/Low Risk (score <= 1) Caprini Risk Assessment Model Point Value = 1 Point Value = 2 Point Value = 3 Point Value = 5 Age 41-60 Minor surgery BMI > 25 kg/m2 Swollen legs Varicose veins or History of unexplained or recurrent spontaneous Oral contraceptives or hormone replacement Sepsis (< 1 month) Serious lung disease, including pneumonia (< 1 month) Abnormal pulmonary function Acute myocardial infarction Congestive heart failure (< 1 month) History of inflammatory bowel disease Medical patient at bed rest Age 61-74 Arthroscopic surgery Major open surgery (> 45 min) Laparoscopic surgery (> 45 min) Malignancy Confined to bed (> 72 hours) Immobilizing plaster cast Central venous access Age >= 75 History of VTE Family history of VTE Factor V Leiden Prothrombin [id number] Lupus anticoagulant Anticardiolipin antibodies Elevated serum homocysteine Heparin-induced thrombocytopenia Other congenital or acquired thrombophilia Stroke (< 1 month) Elective arthroplasty Hip, pelvis, or leg fracture Acute spinal cord injury (< 1 month) Prophylaxis Regimen Total Risk Factor Score Risk Level Prophylaxis Regimen 0-1 Low Early ambulation 2 Moderate Order ONE of the following: *Sequential Compression Device (SCD) *Heparin 5000 units SQ BID 3-4 Higher Order ONE of the following medications: *Heparin 5000 units SQ TID *Enoxaparin/Lovenox 40 mg SQ daily (WT < 150 kg, CrCl > 30 mL/min) *Enoxaparin/Lovenox 30 mg SQ daily (WT < 150 kg, CrCl > 10-29 mL/min) *Enoxaparin/Lovenox 30 mg SQ BID (WT < 150 kg, CrCl > 30 mL/min) AND/OR *Sequential Compression Device (SCD) 5 or more Highest Order ONE of the following medications: *Heparin 5000 units SQ TID (Preferred with Epidurals) *Enoxaparin/Lovenox 40 mg SQ daily (WT < 150 kg, CrCl > 30 mL/min) *Enoxaparin/Lovenox 30 mg SQ daily (WT < 150 kg, CrCl > 10-29 mL/min) *Enoxaparin/Lovenox 30 mg SQ BID (WT < 150 kg, CrCl > 30 mL/min) AND *Sequential Compression Device (SCD) Assessment and Plan Problem List: (1) TRISHA (acute kidney injury) ICD Codes: N17.9 - Acute kidney failure, unspecified Plan: TRISHA likely secondary to obstructive uropathy Per ER physician urinary bladder 4 cm above umbilicus on initial exam CT abdomen pelvis done 11/24/2017 reviewed and reveals pronounced bladder dilation and bladder hydronephrosis Iraheta catheter placed in emergency department 1.5 L returned then iraheta was clamped Flomax 0.4 mg QHS Consultation placed to urology Recheck BMP in a.m. IV fluids for hydration DVT prophylaxis with SCDs (2) Hyponatremia ICD Codes: E87.1 - Hypo-osmolality and hyponatremia Plan: Patient has daily EtOH use Encourage p.o. hydration IV fluids for hydration Recheck BMP in a.m. (3) ETOH abuse ICD Codes: F10.10 - Alcohol abuse, uncomplicated Plan: Patient counseled and encouraged to abstain CIWA protocol (4) Tobacco dependency ICD Codes: F17.200 - Nicotine dependence, unspecified, uncomplicated Plan: Patient counseled encouraged to abstain (5) Rectal bleeding ICD Codes: K62.5 - Hemorrhage of anus and rectum Plan: Patient has intermitted rectal bleeding. Patient reports this occurs 1- 3 times per week GI consult Assessment and Plan Patient examined. Assessment and plan formulated with Malaika AUSTIN I agree with the above. Physician Certification 2 Midnight Certification Type: Admission for Inpatient Services Order for Inpatient Services The services are ordered in accordance with Medicare regulations or non- Medicare payer requirements, as applicable. In the case of services not specified as inpatient-only, they are appropriately provided as inpatient services in accordance with the 2-midnight benchmark. Estimated LOS (days): 4 days is the estimated time the patient will need to remain in the hospital, assuming treatment plan goals are met and no additional complications. Post-Hospital Plan: Home Malaika Seth Nov 25, 2017 12:02 Dax Graham DO Nov 26, 2017 15:10
[2017-11-25] MEDS ORDERED: LORazepam 2 MG/ML VIAL IV PUSH PRN ×5 (12:15→19:00)
[2017-11-25] MEDS ORDERED: LORazepam 1 MG TAB PO PRN (12:15)
[2017-11-25] MEDS ORDERED: LORazepam 2 MG TAB PO PRN (12:15)
[2017-11-25] MEDS ORDERED: FLUMAZENIL 0.5 MG/5 ML VIAL IV PUSH PRN (12:15)
[2017-11-25] MEDS ORDERED: MULTIVITAMIN INJ 10 ML, FOLIC ACID INJ 1 MG in SODIUM CHLORID 0.9% 500 ML INJ 500 ML IV SCH (12:15)
[2017-11-25 13:25] VITALS: BP 182/98; PULSE 77; RESP 18; TEMP 97; O2SAT 98
[2017-11-25] MEDS: cloNIDine HCL 0.2 MG TAB PO PRN (13:33)
[2017-11-25] MEDS: SODIUM CHLOR 0.9% 1000 ML INJ 1,000 ML IV SCH (13:34)
--- NOTE | 2017-11-25 14:40 | EKG ---
Date Performed: 11/25/2017 Time Performed: 11:18:33 PTAGE: 57 years EKG: Sinus rhythm NORMAL ECG PREVIOUS TRACING : 11/24/2017 14.34 Since the previous tracing, no significant change noted DOCTOR: Anatoliy Samayoa Interpretating Date/Time 11/25/2017 14:39:27
[2017-11-25 16:00] VITALS: BP 154/91; PULSE 80; RESP 17; TEMP 97.4; O2SAT 99
--- NOTE | 2017-11-25 16:32 | PD.CONS ---
HPI Service Urology Consult Requested By Reason for Consult Retention Primary Care Physician No Primary Care Physician Diagnosis: (1) TRISHA (acute kidney injury) ICD Code: N17.9 - Acute kidney failure, unspecified (2) Hyponatremia ICD Code: E87.1 - Hypo-osmolality and hyponatremia (3) ETOH abuse ICD Code: F10.10 - Alcohol abuse, uncomplicated (4) Tobacco dependency ICD Code: F17.200 - Nicotine dependence, unspecified, uncomplicated History of Present Illness 57yo male now in Acute renal failure seen in consultation for urinary retention. Patient reports he has been having difficulty voiding lately with a swollen belly and a slow weak stream. He states that all his life he had issues voiding and had some procedure done as a child. He denies any pain or discomfort. He was initially at [facility] ED, however left AMA due to caring for his dogs. He returned this am to [facility] ED. Patient underwent CT scan which identified a significantly enlarged bladder with severe bilateral hydronephrosis and a Cr over 10. Iraheta catheter was inserted in the ED with over 2L. Urine currently bloody. No fever. Review of Systems ROS Limitations: Clinical Condition Constitutional: DENIES: Fever Eyes: DENIES: Blurred vision Ears, nose, mouth, throat: DENIES: Hearing loss Respiratory: DENIES: Apneas Cardiovascular: DENIES: Chest pain Gastrointestinal: DENIES: Abdominal pain, Nausea, Vomiting Genitourinary: COMPLAINS OF: Urinary frequency, Hematuria Integumentary: DENIES: Rash Neurologic: DENIES: Headache Psychiatric: DENIES: Anxiety Except as stated in HPI: all other systems reviewed are Neg Past Family Social History Past Medical History asthma, nicotine dependence, EtOH abuse, hepatitis C, alcoholic fatty liver, hyperlipidemia, 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 Past Surgical History Vasectomy 2008, right hand repair due to compound breath boxer's fracture 1998, left knee arthroscopic 1989 Reported Medications Reported Meds & Active Scripts Active No Active Prescriptions or Reported Medications Allergies: Coded Allergies: benzoin (Unverified Allergy, Severe, RASH, 11/25/17) ness balsam (Unverified Allergy, Severe, UNKNOWN PER PT, 11/25/17) storax (Unverified Allergy, Unknown, DOES NOT KNOW, 11/25/17) Active Ordered Medications Current Medications Medications (Trade) Dose Ordered Sig/Avis Route Start Time Stop Time Status Last Admin (NS Flush) 2 ml UNSCH PRN IV FLUSH 11/25/17 11:45 (NS Flush) 2 ml BID IV FLUSH 11/25/17 21:00 (Tylenol) 650 mg Q4H PRN PO 11/25/17 11:45 (Zofran Odt) 4 mg Q6H PRN SL 11/25/17 11:45 (Restoril) 15 mg HS PRN PO 11/25/17 11:45 (Narcan Inj) 0.4 mg UNSCH PRN IV PUSH 11/25/17 11:45 (Milk Of Magnmaureen Liq) 30 ml Q12H PRN PO 11/25/17 11:45 Sodium Chloride 1,000 ml @ 75 mls/hr [id number] IV 11/25/17 11:45 11/25/17 13:34 (Catapres) 0.2 mg Q6H PRN PO 11/25/17 11:45 11/25/17 13:33 ([place] 5-325 Mg) 1 tab Q6H PRN PO 11/25/17 11:45 (Dilaudid Pf Inj) 0.5 mg Q6H PRN IV PUSH 11/25/17 11:45 (Folate) 1 mg DAILY PO 11/26/17 09:00 12/01/17 08:59 (Vitamin B1) 100 mg DAILY PO 11/26/17 09:00 (Protonix) 40 mg DAILY PO 11/26/17 09:00 (Romazicon Inj) 0.2 mg Q1M PRN IV PUSH 11/25/17 12:15 (Ativan) 1 mg Q4H PRN PO 11/25/17 12:15 (Ativan Inj) 1 mg Q4H PRN IV PUSH 11/25/17 12:15 (Ativan) 2 mg Q2H PRN PO 11/25/17 12:15 (Ativan Inj) 2 mg Q2H PRN IV PUSH 11/25/17 12:15 (Ativan Inj) 2 mg Q1H PRN IV PUSH 11/25/17 12:15 (Ativan Inj) 2 mg Q15M PRN IV PUSH 11/25/17 12:15 Family History Family history reviewed and noncontributory to present illness, however patient reports father or grandfather had similar issues in the past Social History EtOH use proximally 5 beers per day Tobacco use 1.5 packs per day Denies illicit drug use Physical Exam Vital Signs Date Time Temp Pulse Resp B/P (MAP) Pulse Ox O2 Delivery O2 Flow Rate FiO2 11/25/17 16:00 97.4 80 17 154/91 (112) 99 11/25/17 13:25 97.0 77 18 182/98 (126) 98 11/25/17 11:18 82 156/92 (113) 11/25/17 09:49 98.3 99 20 199/107 (137) 100 Physical Exam GENERAL: This is a well-nourished, well-developed patient, in no apparent distress. SKIN: No rashes, ecchymoses or lesions. Cool and dry. HEAD: Atraumatic. Normocephalic. . EYES: Extraocular motions intact. No scleral icterus. No injection or drainage. ENT: Nose without bleeding, purulent drainage. Airway patent. NECK: Trachea midline. No JVD or lymphadenopathy. CARDIOVASCULAR: Normal pulse RESPIRATORY: Nonlabored GASTROINTESTINAL: Abdomen soft, non-tender, nondistended. GENITOURINARY: Circumcised phallus, normal urethral meatus; Bilateral descended testis, no masses. Condylomas noted above penis. Iraheta catheter in place with light red urine. MUSCULOSKELETAL: Extremities without clubbing, cyanosis, or edema. NEUROLOGICAL: Awake and alert. Motor and sensory grossly within normal limits. Normal speech. Lab results reviewed: Yes Laboratory Tests Test 11/25/17 10:30 White Blood Count 5.5 Red Blood Count 2.82 Hemoglobin 8.8 Hematocrit 25.9 Mean Corpuscular Volume 91.7 Mean Corpuscular Hemoglobin 31.2 Mean Corpuscular Hemoglobin Concent 34.0 Red Cell Distribution Width 14.1 Platelet Count 285 Mean Platelet Volume 7.3 Neutrophils (%) (Auto) 73.0 Lymphocytes (%) (Auto) 12.8 Monocytes (%) (Auto) 11.3 Eosinophils (%) (Auto) 2.5 Basophils (%) (Auto) 0.4 Neutrophils # (Auto) 4.0 Lymphocytes # (Auto) 0.7 Monocytes # (Auto) 0.6 Eosinophils # (Auto) 0.1 Basophils # (Auto) 0.0 CBC Comment DIFF FINAL Differential Comment Blood Urea Nitrogen 82 Creatinine 10.55 Random Glucose 92 Total Protein 7.4 Albumin 3.4 Calcium Level 8.4 Phosphorus Level 8.6 Magnesium Level 2.4 Alkaline Phosphatase 89 Aspartate Amino Transf (AST/SGOT) 12 Alanine Aminotransferase (ALT/SGPT) 13 Total Bilirubin 0.3 Sodium Level 128 Potassium Level 5.1 Chloride Level 94 Carbon Dioxide Level 18.3 Anion Gap 16 Estimat Glomerular Filtration Rate 5 Result Diagram: 11/25/17 1030 11/25/17 1030 Personally reviewed images: Yes Imaging Last Impressions Chest X-Ray 11/25/17 1141 Signed Impressions: CONCLUSION: Hyperinflation. Assessment and Plan Problem List: (1) TRISHA (acute kidney injury) ICD Code: N17.9 - Acute kidney failure, unspecified (2) Acute renal failure ICD Code: N17.9 - Acute kidney failure, unspecified Status: Acute (3) Obstructive uropathy ICD Code: N13.9 - Obstructive and reflux uropathy, unspecified Status: Acute Assessment and Plan 57 yo male with bladder outlet obstruction and bilateral hydronephrosis -Maintain iraheta catheter in place -Patient with likely bladder outlet obstruction, however its appearance and history may be longstanding, and therefore bladder function may have been compromised over time. Therefore Iraheta catheter is to remain in place and discharged with catheter -Expect bloody urine given degree of bladder distention. May hand irrigate with 60cc of normal saline or sterile water as needed -Expect Cr and hydronephrosis to improve -No intervention at this time, however patient to maintain iraheta catheter and followup in Urology clinic after discharge for further evaluation and treatment -Please call with questions Problem Qualifiers (1) Acute renal failure: Qualified Codes: N17.9 - Acute kidney failure, unspecified Drew Butt MD Nov 25, 2017 16:32
[2017-11-25 18:49] LABS: BACTERIA, URINE OCC /hpf; BILIRUBIN, URINE NEG (NEG); BLOOD, URINE MOD (NEG); GLUCOSE,URINE 70 mg/dL (NEG); KETONE, URINE NEG (NEG); NITRITE,URINE NEG (NEG); PH, URINE 7.5 (5.0-8.5); URINE COLOR LIGHT-YELLOW (YELLW/STRAW); URINE LEUKOCYTE ESTERASE NEG (NEG)
[2017-11-25] MEDS ORDERED: RESP: ALBUTEROL 2.5 MG/IPRATROPIUM 0.5 MG NEB (PRN) NEB (19:00)
[2017-11-25] MEDS: SODIUM CHLORIDE 0.9% FLUSH 10 ML FLUSH IV FLUSH SCH (19:44)
[2017-11-25] MEDS: methylPREDNISolone SOD SUCC 125 MG/2 ML VIAL IV PUSH SCH (19:44)
[2017-11-25] MEDS: TAMSULOSIN HCL 0.4 MG CAP PO SCH (19:51)
[2017-11-25 20:00] VITALS: BP 163/88; PULSE 81; RESP 18; TEMP 97.4; O2SAT 99
[2017-11-25 21:01] VITALS: O2SAT 97
[2017-11-25] MEDS: RESP: ALBUTEROL 2.5 MG/IPRATROPIUM 0.5 MG NEB (SCH) NEB (21:01)
[2017-11-26] VITALS (9 sets, daily range): BP systolic 135–175; BP diastolic 74–97; PULSE 78–122; RESP 16–18; TEMP 97.1–98.1; O2SAT 96–100
[2017-11-26] MEDS: SODIUM CHLOR 0.9% 1000 ML INJ 1,000 ML IV SCH ×2 (01:38→15:38)
[2017-11-26 07:28] LABS: AUTOMATED NEUTROPHIL # 1.7 TH/MM3 (1.8-7.7); BASOPHIL % 0.1 % (0.0-2.0); EOSINOPHIL % 0.3 % (0.0-4.0); HEMATOCRIT 23.7 % (39.0-51.0); LYMPH % 9.3 % (9.0-44.0); LYMPHOCYTE # 0.2 TH/MM3 (1.0-4.8); MEAN CELL VOLUME 91.8 FL (80.0-100.0); MEAN CORPUSCULAR HEMOGLOBIN 31.2 PG (27.0-34.0); MEAN CORPUSCULAR HGB CONC 33.9 % (32.0-36.0); MEAN PLATELET VOLUME 7.7 FL (7.0-11.0); MONO % 1.7 % (0.0-8.0); NEUT % 88.6 % (16.0-70.0); PLATELET COUNT 249 TH/MM3 (150-450); RED BLOOD COUNT 2.58 MIL/MM3 (4.50-5.90); RED CELL DISTRIBUTION WIDTH 13.8 % (11.6-17.2); WHITE BLOOD COUNT 1.9 TH/MM3 (4.0-11.0)
[2017-11-26 07:55] LABS: BICARBONATE 17.5 MEQ/L (21.0-32.0); CALCIUM 8.3 MG/DL (8.5-10.1); CREATININE 9.55 MG/DL (0.60-1.30)
[2017-11-26] MEDS ORDERED: SODIUM POLYSTYRENE SULFONATE SUSP 15 GM/60 ML CUP PO ONE (08:30)
[2017-11-26 08:37] LABS: BANDS 1 % (0-6); LYMPHOCYTES 7 % (9-44); NEUTROPHIL # MANUAL DIFF 1.8 TH/MM3 (1.8-7.7); POLYS (SEG NEUTROPHILS) 92 % (16-70)
[2017-11-26 08:39] LABS: OVALOCYTES 1+ (NORMAL)
[2017-11-26] MEDS: RESP: ALBUTEROL 2.5 MG/IPRATROPIUM 0.5 MG NEB (SCH) NEB ×3 (08:53→19:48)
[2017-11-26] MEDS: SODIUM CHLORIDE 0.9% FLUSH 10 ML FLUSH IV FLUSH SCH ×2 (09:00→22:24)
[2017-11-26] MEDS: FOLIC ACID 1 MG TAB PO SCH (09:26)
[2017-11-26] MEDS: THIAMINE HCL 100 MG TAB PO SCH (09:26)
[2017-11-26] MEDS: methylPREDNISolone SOD SUCC 125 MG/2 ML VIAL IV PUSH SCH ×2 (09:26→22:20)
[2017-11-26] MEDS: PANTOPRAZOLE SOD 40 MG DELAYED RELEASE TAB PO SCH (09:26)
--- NOTE | 2017-11-26 13:52 | HHI.PR ---
Subjective Remarks Patient offers no new concerns/complaints Objective Vitals Vital Signs Date Time Temp Pulse Resp B/P (MAP) Pulse Ox O2 Delivery O2 Flow Rate FiO2 11/26/17 13:03 97.6 93 16 146/81 (102) 100 11/26/17 09:19 97.1 93 17 161/80 (107) 96 11/26/17 04:00 98.1 89 18 137/74 (95) 99 11/26/17 04:00 78 11/26/17 00:00 85 11/26/17 00:00 98.0 86 18 135/77 (96) 96 11/25/17 21:01 97 21 11/25/17 20:00 97.4 81 18 163/88 (113) 99 11/25/17 16:00 97.4 80 17 154/91 (112) 99 Result Diagram: 11/26/17 0633 11/26/17 0633 Other Results Laboratory Tests Test 11/25/17 10:30 11/25/17 17:40 11/26/17 06:33 White Blood Count 5.5 TH/MM3 1.9 TH/MM3 Red Blood Count 2.82 MIL/MM3 2.58 MIL/MM3 Hemoglobin 8.8 GM/DL 8.0 GM/DL Hematocrit 25.9 % 23.7 % Mean Corpuscular Volume 91.7 FL 91.8 FL Mean Corpuscular Hemoglobin 31.2 PG 31.2 PG Mean Corpuscular Hemoglobin Concent 34.0 % 33.9 % Red Cell Distribution Width 14.1 % 13.8 % Platelet Count 285 TH/MM3 249 TH/MM3 Mean Platelet Volume 7.3 FL 7.7 FL Neutrophils (%) (Auto) 73.0 % 88.6 % Lymphocytes (%) (Auto) 12.8 % 9.3 % Monocytes (%) (Auto) 11.3 % 1.7 % Eosinophils (%) (Auto) 2.5 % 0.3 % Basophils (%) (Auto) 0.4 % 0.1 % Neutrophils # (Auto) 4.0 TH/MM3 1.7 TH/MM3 Lymphocytes # (Auto) 0.7 TH/MM3 0.2 TH/MM3 Monocytes # (Auto) 0.6 TH/MM3 0.0 TH/MM3 Eosinophils # (Auto) 0.1 TH/MM3 0.0 TH/MM3 Basophils # (Auto) 0.0 TH/MM3 0.0 TH/MM3 CBC Comment DIFF FINAL AUTO DIFF Differential Comment FINAL DIFF MANUAL Blood Urea Nitrogen 82 MG/DL 79 MG/DL Creatinine 10.55 MG/DL 9.55 MG/DL Random Glucose 92 MG/DL 160 MG/DL Total Protein 7.4 GM/DL Albumin 3.4 GM/DL Calcium Level 8.4 MG/DL 8.3 MG/DL Phosphorus Level 8.6 MG/DL Magnesium Level 2.4 MG/DL Alkaline Phosphatase 89 U/L Aspartate Amino Transf (AST/SGOT) 12 U/L Alanine Aminotransferase (ALT/SGPT) 13 U/L Total Bilirubin 0.3 MG/DL Sodium Level 128 MEQ/L 127 MEQ/L Potassium Level 5.1 MEQ/L 5.7 MEQ/L Chloride Level 94 MEQ/L 94 MEQ/L Carbon Dioxide Level 18.3 MEQ/L 17.5 MEQ/L Anion Gap 16 MEQ/L 16 MEQ/L Estimat Glomerular Filtration Rate 5 ML/MIN 6 ML/MIN Urine Color LIGHT-YELLOW Urine Turbidity CLEAR Urine pH 7.5 Urine Specific [place] 1.014 Urine Protein 300 mg/dL Urine Glucose (UA) 70 mg/dL Urine Ketones NEG mg/dL Urine Occult Blood MOD Urine Nitrite NEG Urine Bilirubin NEG Urine Urobilinogen LESS THAN 2.0 MG/DL Urine Leukocyte Esterase NEG Urine RBC /hpf Urine WBC 49 /hpf Urine Bacteria OCC /hpf Microscopic Urinalysis Comment CULTURE INDICATED Differential Total Cells Counted 100 Neutrophils % (Manual) 92 % Band Neutrophils % 1 % Lymphocytes % 7 % Neutrophils # (Manual) 1.8 TH/MM3 Platelet Estimate NORMAL Platelet Morphology Comment NORMAL Ovalocytes 1+ Imaging Last Impressions Chest X-Ray 11/25/17 1141 Signed Impressions: CONCLUSION: Hyperinflation. Objective Remarks GENERAL: This is a thin, well-developed patient, in no apparent distress. CARDIOVASCULAR: Regular rate and rhythm RESPIRATORY: Clear to auscultation. Breath sounds equal bilaterally. GASTROINTESTINAL: Abdomen soft, non-tender, nondistended. Normal active bowel sounds GENITOURINARY: Iraheta in place draining blood tinged urine MUSCULOSKELETAL: Extremities without clubbing, cyanosis, or edema. NEURO: Alert & Oriented x4 to person, place, time, situation. Moves all ext x4 A/P Problem List: (1) TRISHA (acute kidney injury) ICD Codes: N17.9 - Acute kidney failure, unspecified Plan: TRISHA likely secondary to obstructive uropathy Per ER physician urinary bladder 4 cm above umbilicus on initial exam CT abdomen pelvis done 11/24/2017 reviewed and reveals pronounced bladder dilation and bladder hydronephrosis Iraheta catheter placed in emergency department 1.5 L returned then iraheta was clamped On admission creatinine was 10.55 -> 9.55 (11/26) recheck BMP at 1300 pending Flomax 0.4 mg QHS Consultation placed to urology, no surgical intervention at this time. Recommend DC patient with iraheta in place and outpatient follow up with Urology Recheck BMP in a.m. continue IV fluids for hydration DVT prophylaxis with SCDs (2) Hyponatremia ICD Codes: E87.1 - Hypo-osmolality and hyponatremia Plan: Patient has daily EtOH use Encourage p.o. hydration IV fluids for hydration Recheck BMP in a.m. (3) ETOH abuse ICD Codes: F10.10 - Alcohol abuse, uncomplicated Plan: Patient counseled and encouraged to abstain CIWA protocol (4) Tobacco dependency ICD Codes: F17.200 - Nicotine dependence, unspecified, uncomplicated Plan: Patient counseled encouraged to abstain (5) Hyperkalemia ICD Codes: E87.5 - Hyperkalemia Plan: Kayexalate 30 gm ordered x 1 (6) Rectal bleeding ICD Codes: K62.5 - Hemorrhage of anus and rectum Plan: Patient has intermitted rectal bleeding. Patient reports this occurs 1- 3 times per week Hemoccult stools pending GI consult Assessment and Plan Patient examined. Assessment and plan formulated with Malaika Seth PA-C. I agree with the above. Pt had no new complaints. continue IVFs repeat BMP in AM await GI consult. Malaika Seth Nov 26, 2017 13:52 Dax Graham DO Nov 26, 2017 15:11
[2017-11-26] MEDS ORDERED: NICOTINE 21 MG/24 HR PATCH T-DERMAL ONE (15:45)
[2017-11-26 16:48] LABS: BICARBONATE 18.5 MEQ/L (21.0-32.0); CALCIUM 8.1 MG/DL (8.5-10.1); CREATININE 9.15 MG/DL (0.60-1.30)
--- NOTE | 2017-11-26 17:20 | PD.CONS ---
HPI History of Present Illness This is a 57 year old male who was admitted to the hospital on 11/26/2017 with symptoms of dysuria. according to the record patient was seen at the [facility] and was initially going to be admitted, but had to leave AGAINST MEDICAL ADVICE and take care of some animals and promised he would come back he then presented to the emergency room here at [place] with the same symptoms. During patient's admission process he noted chronic rectal bleeding Often known over the past 5 years which has seemed to worsen in the recent 3 months. He notes bright red blood at least 1-3 times a week in the toilet and with wiping. He states his bowel movements are from but denies any significant urgency. Currently patient denies any nausea or vomiting, no dysphasia and no heartburn Or hematemesis. Patient does complain of some lethargy and body aches and does have bright red hematuria noted in his Amador catheter with dysuria symptoms. Patient states dad from colon cancer. He does state possible EGD in the past but no colonoscopy ever. Patient does have a history of hepatitis C diagnosed 7 or 8 years ago with no treatment. Also notes alcoholic fatty liver, alcohol at least 3 times a week with beer, and a rare participation with marijuana sometimes twice a year. (Viola Alexander) PFSH Past Medical History Dysuria and hematuria Asthma Nicotine and alcohol dependence Hepatitis C Alcoholic fatty liver Hyperlipidemia Traumatic brain injury, per the record Past Surgical History Vasectomy Possible EGD in the past (Viola Alexander) Coded Allergies: benzoin (Unverified Allergy, Severe, RASH, 11/25/17) ness balsam (Unverified Allergy, Severe, UNKNOWN PER PT, 11/25/17) storax (Unverified Allergy, Unknown, DOES NOT KNOW, 11/25/17) Medications Administered Medications Medications (Trade) Dose Ordered Sig/Avis Route PRN Reason Start Time Stop Time Status Last Admin Dose Admin Sodium Chloride (NS Flush) 2 ml BID IV FLUSH 11/25/17 21:00 11/25/17 19:44 Sodium Chloride 1,000 ml @ 75 mls/hr [id number] IV 11/25/17 11:45 11/26/17 15:38 Clonidine (Catapres) 0.2 mg Q6H PRN PO SBP above 160 11/25/17 11:45 11/25/17 13:33 Folic Acid (Folate) 1 mg DAILY PO 11/26/17 09:00 12/01/17 08:59 11/26/17 09:26 Thiamine HCl (Vitamin B1) 100 mg DAILY PO 11/26/17 09:00 11/26/17 09:26 Pantoprazole Sodium (Protonix) 40 mg DAILY PO 11/26/17 09:00 11/26/17 09:26 Albuterol/ Ipratropium (Duoneb Neb) 1 ampule Q6HR WHILE AWAKE NEB NEB 11/25/17 20:00 11/26/17 12:22 Methylprednisolone Sodium Succinate (SoluMEDROL INJ) 60 mg Q12HR IV PUSH 11/25/17 21:00 11/26/17 09:26 Tamsulosin HCl (Flomax) 0.4 mg HS PO 11/25/17 21:00 11/25/17 19:51 Family History Dad from colon cancer Social History Positive for tobacco alcohol and rare marijuana use twice a year (Viola Alexander) Review of Systems Constitutional: COMPLAINS OF: Fatigue Gastrointestinal: COMPLAINS OF: Bloody stools (Viola Alexander) GI Exam Vitals I&O Vital Signs Date Time Temp Pulse Resp B/P (MAP) Pulse Ox O2 Delivery O2 Flow Rate FiO2 11/26/17 16:27 97.9 114 18 145/97 (113) 97 11/26/17 13:03 97.6 93 16 146/81 (102) 100 11/26/17 09:19 97.1 93 17 161/80 (107) 96 11/26/17 04:00 98.1 89 18 137/74 (95) 99 11/26/17 04:00 78 11/26/17 00:00 85 11/26/17 00:00 98.0 86 18 135/77 (96) 96 11/25/17 21:01 97 21 11/25/17 20:00 97.4 81 18 163/88 (113) 99 I/O 11/25/17 11/25/17 11/25/17 11/26/17 11/26/17 11/26/17 07:00 15:00 23:00 07:00 15:00 23:00 Intake Total 480 ml 1240 ml Output Total 2500 ml 1375 ml 2500 ml Balance -2500 ml -895 ml -1260 ml Intake Oral 480 ml 240 ml IV Total 1000 ml Output Urine Total 2500 ml 1375 ml 2500 ml # Bowel Movements 0 1 Imaging Last Impressions Chest X-Ray 11/25/17 1141 Signed Impressions: CONCLUSION: Hyperinflation. Laboratory Test 11/25/17 17:40 11/26/17 06:33 11/26/17 15:36 Urine Color LIGHT-YELLOW Urine Turbidity CLEAR Urine pH 7.5 Urine Specific [place] 1.014 Urine Protein 300 mg/dL Urine Glucose (UA) 70 mg/dL Urine Ketones NEG mg/dL Urine Occult Blood MOD Urine Nitrite NEG Urine Bilirubin NEG Urine Urobilinogen LESS THAN 2.0 MG/DL Urine Leukocyte Esterase NEG Urine RBC /hpf Urine WBC 49 /hpf Urine Bacteria OCC /hpf Microscopic Urinalysis Comment CULTURE INDICATED White Blood Count 1.9 TH/MM3 Red Blood Count 2.58 MIL/MM3 Hemoglobin 8.0 GM/DL Hematocrit 23.7 % Mean Corpuscular Volume 91.8 FL Mean Corpuscular Hemoglobin 31.2 PG Mean Corpuscular Hemoglobin Concent 33.9 % Red Cell Distribution Width 13.8 % Platelet Count 249 TH/MM3 Mean Platelet Volume 7.7 FL Neutrophils (%) (Auto) 88.6 % Lymphocytes (%) (Auto) 9.3 % Monocytes (%) (Auto) 1.7 % Eosinophils (%) (Auto) 0.3 % Basophils (%) (Auto) 0.1 % Neutrophils # (Auto) 1.7 TH/MM3 Lymphocytes # (Auto) 0.2 TH/MM3 Monocytes # (Auto) 0.0 TH/MM3 Eosinophils # (Auto) 0.0 TH/MM3 Basophils # (Auto) 0.0 TH/MM3 CBC Comment AUTO DIFF Differential Total Cells Counted 100 Neutrophils % (Manual) 92 % Band Neutrophils % 1 % Lymphocytes % 7 % Neutrophils # (Manual) 1.8 TH/MM3 Differential Comment FINAL DIFF MANUAL Platelet Estimate NORMAL Platelet Morphology Comment NORMAL Ovalocytes 1+ Blood Urea Nitrogen 79 MG/DL 78 MG/DL Creatinine 9.55 MG/DL 9.15 MG/DL Random Glucose 160 MG/DL 321 MG/DL Calcium Level 8.3 MG/DL 8.1 MG/DL Sodium Level 127 MEQ/L 129 MEQ/L Potassium Level 5.7 MEQ/L 4.1 MEQ/L Chloride Level 94 MEQ/L 92 MEQ/L Carbon Dioxide Level 17.5 MEQ/L 18.5 MEQ/L Anion Gap 16 MEQ/L 19 MEQ/L Estimat Glomerular Filtration Rate 6 ML/MIN 6 ML/MIN Date/Time Source Procedure Growth Status 11/25/17 17:40 Urine Random Urine Urine Culture - Preliminary NO GROWTH IN 24 HOURS. Resulted Physical Examination HEENT: Normal BMI, normocephalic; atraumatic; no jaundice. NECK: Neck is supple, no JVD, no lymphadenopathy. CHEST: Mild diminished breath sounds CARDIAC: Regular rate and rhythm ABDOMEN: Soft, mild distention, nontender; no palpable hepatosplenomegaly; bowel sounds are present in all four quadrants. EXTREMITIES: No clubbing, cyanosis, or edema. SKIN: Normal; no rash; no jaundice. BOARDMARKER: No focal deficits; alert and oriented times three. (Viola Alexander) Assessment and Plan Assessment: (1) Rectal bleeding ICD Codes: K62.5 - Hemorrhage of anus and rectum Plan Rectal bleeding chronic bright red 1-3 times a week, bowel movements firm but usually daily. States decreased amounts of fiber in his diet. History of hepatitis C diagnosed 7 or 8 years ago but has had no treatment. Dad positive family history of colon cancer, 57-year-old male who came into the hospital initially for hematuria and dysuria and noted rectal bleeding onset of symptoms approximately 5 years ago and has continued. He does note symptoms 1-3 times a week and firm stools but denies any acute straining. Possible EGD in the long past but no colonoscopy. Daily beer alcohol consumption but normal LFTs. Current hemoglobin 8. Amador catheter with hematuria noted and is going to be seen per urology. Patient has eaten multiple meals today which includes some nuts sitting at his bedside. Due to patient's multiple consults and hematuria issues we will do colonoscopy on Monday. Discussed plan of care with patient and he agrees. Discussed Hep. C Dx and treatment possibilities. Will see ZIYAD as OP . Plan Clear liquids in a.m. N.p.o. at midnight tomorrow night on 11/28/2017. Shaneka prep Consent for colonoscopy, Monday a.m. 11/28/2017 PPI Monitor labs with special attention to hemoglobin Supportive care Patient was seen per myself and Dr. Stack, note was written on his behalf (Viola Alexander) Physician Comments Seen and examined, plan as above, will start prep for Colonoscopy. Thank you for the consult. (Monet Stack MD) Viola Alexander Nov 26, 2017 17:20 Monet Stack MD Nov 26, 2017 23:01
[2017-11-26] MEDS ORDERED: PEG (High)/E-LYTE SOLN 4000 ML BTL PO ONE (18:00)
[2017-11-26] MEDS ORDERED: chlordiazePOXIDE 25 MG CAP PO PRN (18:15)
[2017-11-26] MEDS: TAMSULOSIN HCL 0.4 MG CAP PO SCH (22:25)
[2017-11-27] VITALS (7 sets, daily range): BP systolic 149–173; BP diastolic 81–93; PULSE 91–119; RESP 16–20; TEMP 97.2–98.1; O2SAT 98–99
[2017-11-27] MEDS: SODIUM CHLOR 0.9% 1000 ML INJ 1,000 ML IV SCH ×4 (03:45→21:11)
[2017-11-27] MEDS: RESP: ALBUTEROL 2.5 MG/IPRATROPIUM 0.5 MG NEB (SCH) NEB ×3 (08:03→20:39)
[2017-11-27] MEDS ORDERED: DEXTROSE 50% IN WATER 50 ML VIAL(D50) IV PUSH PRN (09:00)
[2017-11-27] MEDS: methylPREDNISolone SOD SUCC 125 MG/2 ML VIAL IV PUSH SCH ×2 (09:00→21:10)
[2017-11-27] MEDS ORDERED: GLUCAGON 1 MG/ML VIAL OTHER PRN (09:00)
[2017-11-27] MEDS: REMOVE OLD PATCH T-DERMAL SCH (09:00)
[2017-11-27] MEDS: FOLIC ACID 1 MG TAB PO SCH (09:55)
[2017-11-27] MEDS: THIAMINE HCL 100 MG TAB PO SCH (09:55)
[2017-11-27] MEDS: PANTOPRAZOLE SOD 40 MG DELAYED RELEASE TAB PO SCH (09:55)
[2017-11-27] MEDS: SODIUM CHLORIDE 0.9% FLUSH 10 ML FLUSH IV FLUSH SCH ×2 (09:55→21:10)
[2017-11-27] MEDS: NICOTINE 21 MG/24 HR PATCH T-DERMAL SCH (09:56)
--- NOTE | 2017-11-27 10:34 | HHI.PR ---
Subjective Remarks Patient offers no new concerns/complaints Plan for colonoscopy Objective Vitals Vital Signs Date Time Temp Pulse Resp B/P (MAP) Pulse Ox O2 Delivery O2 Flow Rate FiO2 11/27/17 08:00 97.2 94 18 160/91 (114) 99 11/27/17 04:00 98.1 99 17 157/84 (108) 98 11/27/17 03:56 107 11/27/17 00:00 97.7 101 17 159/82 (107) 98 11/26/17 23:43 93 11/26/17 20:00 97.1 100 17 175/87 (116) 98 11/26/17 19:49 97 21 11/26/17 19:41 122 11/26/17 16:27 97.9 114 18 145/97 (113) 97 11/26/17 13:03 97.6 93 16 146/81 (102) 100 Result Diagram: 11/26/17 0633 11/26/17 1536 Other Results Laboratory Tests Test 11/25/17 10:30 11/25/17 17:40 11/26/17 06:33 11/26/17 15:36 White Blood Count 5.5 TH/MM3 1.9 TH/MM3 Red Blood Count 2.82 MIL/MM3 2.58 MIL/MM3 Hemoglobin 8.8 GM/DL 8.0 GM/DL Hematocrit 25.9 % 23.7 % Mean Corpuscular Volume 91.7 FL 91.8 FL Mean Corpuscular Hemoglobin 31.2 PG 31.2 PG Mean Corpuscular Hemoglobin Concent 34.0 % 33.9 % Red Cell Distribution Width 14.1 % 13.8 % Platelet Count 285 TH/MM3 249 TH/MM3 Mean Platelet Volume 7.3 FL 7.7 FL Neutrophils (%) (Auto) 73.0 % 88.6 % Lymphocytes (%) (Auto) 12.8 % 9.3 % Monocytes (%) (Auto) 11.3 % 1.7 % Eosinophils (%) (Auto) 2.5 % 0.3 % Basophils (%) (Auto) 0.4 % 0.1 % Neutrophils # (Auto) 4.0 TH/MM3 1.7 TH/MM3 Lymphocytes # (Auto) 0.7 TH/MM3 0.2 TH/MM3 Monocytes # (Auto) 0.6 TH/MM3 0.0 TH/MM3 Eosinophils # (Auto) 0.1 TH/MM3 0.0 TH/MM3 Basophils # (Auto) 0.0 TH/MM3 0.0 TH/MM3 CBC Comment DIFF FINAL AUTO DIFF Differential Comment FINAL DIFF MANUAL Blood Urea Nitrogen 82 MG/DL 79 MG/DL 78 MG/DL Creatinine 10.55 MG/DL 9.55 MG/DL 9.15 MG/DL Random Glucose 92 MG/DL 160 MG/DL 321 MG/DL Total Protein 7.4 GM/DL Albumin 3.4 GM/DL Calcium Level 8.4 MG/DL 8.3 MG/DL 8.1 MG/DL Phosphorus Level 8.6 MG/DL Magnesium Level 2.4 MG/DL Alkaline Phosphatase 89 U/L Aspartate Amino Transf (AST/SGOT) 12 U/L Alanine Aminotransferase (ALT/SGPT) 13 U/L Total Bilirubin 0.3 MG/DL Sodium Level 128 MEQ/L 127 MEQ/L 129 MEQ/L Potassium Level 5.1 MEQ/L 5.7 MEQ/L 4.1 MEQ/L Chloride Level 94 MEQ/L 94 MEQ/L 92 MEQ/L Carbon Dioxide Level 18.3 MEQ/L 17.5 MEQ/L 18.5 MEQ/L Anion Gap 16 MEQ/L 16 MEQ/L 19 MEQ/L Estimat Glomerular Filtration Rate 5 ML/MIN 6 ML/MIN 6 ML/MIN Urine Color LIGHT-YELLOW Urine Turbidity CLEAR Urine pH 7.5 Urine Specific [place] 1.014 Urine Protein 300 mg/dL Urine Glucose (UA) 70 mg/dL Urine Ketones NEG mg/dL Urine Occult Blood MOD Urine Nitrite NEG Urine Bilirubin NEG Urine Urobilinogen LESS THAN 2.0 MG/DL Urine Leukocyte Esterase NEG Urine RBC /hpf Urine WBC 49 /hpf Urine Bacteria OCC /hpf Microscopic Urinalysis Comment CULTURE INDICATED Differential Total Cells Counted 100 Neutrophils % (Manual) 92 % Band Neutrophils % 1 % Lymphocytes % 7 % Neutrophils # (Manual) 1.8 TH/MM3 Platelet Estimate NORMAL Platelet Morphology Comment NORMAL Ovalocytes 1+ Imaging Last Impressions Chest X-Ray 11/25/17 1141 Signed Impressions: CONCLUSION: Hyperinflation. Objective Remarks GENERAL: This is a thin, well-developed patient, in no apparent distress. CARDIOVASCULAR: Regular rate and rhythm RESPIRATORY: Clear to auscultation. Breath sounds equal bilaterally. GASTROINTESTINAL: Abdomen soft, non-tender, nondistended. Normal active bowel sounds GENITOURINARY: Iraheta in place draining blood tinged urine MUSCULOSKELETAL: Extremities without clubbing, cyanosis, or edema. NEURO: Alert & Oriented x4 to person, place, time, situation. Moves all ext x4 A/P Problem List: (1) TRISHA (acute kidney injury) ICD Codes: N17.9 - Acute kidney failure, unspecified Plan: TRISHA (acute kidney injury) TRISHA likely secondary to obstructive uropathy Per ER physician urinary bladder 4 cm above umbilicus on initial exam CT abdomen pelvis done 11/24/2017 reviewed and reveals pronounced bladder dilation and bladder hydronephrosis Iraheta catheter placed in emergency department 1.5 L returned then iraheta was clamped On admission creatinine was 10.55 -> 9.55 (11/26) -> 9.15 (11/26 1536) -> labs are pending to today Flomax 0.4 mg QHS Consultation placed to urology, no surgical intervention at this time. Recommend DC patient with iraheta in place and outpatient follow up with Urology renal US requested for today to reevaluate hydronephrosis Recheck BMP in a.m. continue IV fluids for hydration DVT prophylaxis with SCDs Hyponatremia Patient has daily EtOH use Encourage p.o. hydration IV fluids for hydration Recheck BMP in a.m. ETOH abuse Patient counseled and encouraged to abstain CIWA protocol Tobacco dependency Patient counseled encouraged to abstain Nicotine patch inplace COPD exacerbation Solumedrol 60 mg IV Q12H Steroid induced hyperglycemia blood glucose elevate n BMP likely reactive due to steroids add accu checks ACHS with SSI coverage Hyperkalemia Kayexalate 30 gm ordered x 1 (11/26) recheck 11/26 1536 4.1 Rectal bleeding Patient has intermitted rectal bleeding. Patient reports this occurs 1-3 times per week Hemoccult stools pending GI consult, appreciate input plan for colonoscopy (2) Hyponatremia ICD Codes: E87.1 - Hypo-osmolality and hyponatremia (3) ETOH abuse ICD Codes: F10.10 - Alcohol abuse, uncomplicated (4) Tobacco dependency ICD Codes: F17.200 - Nicotine dependence, unspecified, uncomplicated (5) Hyperkalemia ICD Codes: E87.5 - Hyperkalemia (6) Rectal bleeding ICD Codes: K62.5 - Hemorrhage of anus and rectum Assessment and Plan Patient examined. Assessment and plan formulated with Malaika Seth PA-C. I agree with the above. obstructive uropathy. trisha. cont iraheta and plan to dc with iraheta cont ivf and monitor cr. GI planning egd/colon for anemia and blood in stool. d/c in next 24 to 48hrs. Malaika Seth Nov 27, 2017 10:34 Kristian Boland MD Nov 27, 2017 13:18
[2017-11-27 11:01] LABS: AUTOMATED NEUTROPHIL # 6.3 TH/MM3 (1.8-7.7); HEMATOCRIT 21.3 % (39.0-51.0); HEMOGLOBIN 7.3 GM/DL (13.0-17.0); LYMPH % 2.1 % (9.0-44.0); LYMPHOCYTE # 0.1 TH/MM3 (1.0-4.8); MEAN CELL VOLUME 90.7 FL (80.0-100.0); MEAN CORPUSCULAR HEMOGLOBIN 31.3 PG (27.0-34.0); MEAN CORPUSCULAR HGB CONC 34.5 % (32.0-36.0); MONOCYTE # 0.1 TH/MM3 (0-0.9); NEUT % 95.9 % (16.0-70.0); PLATELET COUNT 272 TH/MM3 (150-450); RED BLOOD COUNT 2.35 MIL/MM3 (4.50-5.90); RED CELL DISTRIBUTION WIDTH 13.7 % (11.6-17.2); WHITE BLOOD COUNT 6.6 TH/MM3 (4.0-11.0)
--- NOTE | 2017-11-27 11:20 | RADRPT ---
EXAM DATE: 11/27/2017 10:55 AM EDT AGE/SEX: 57 years / Male INDICATIONS: Increased BUN/Creatinine. CLINICAL DATA: This is the patient's initial encounter. Patient reports that signs and symptoms have been present for 1 day and indicates a pain score of 0/10. MEDICAL/SURGICAL HISTORY: Asthma. Hepatitis C. Melena. Hyperlipidemia. Alcoholic fatty liver. . Left knee arthroscopy. Vasectomy. Right hand boxer fracture repair. COMPARISON: [facility], CT ABDOMEN & PELVIS W/O CONTRAST, 11/24/2017. . MEASUREMENTS: Right Kidney:__11.2 x 5.2 x 5.1 cm cm Left Kidney:__12.6 x 5.3 x 5.9 cm cm FINDINGS: Right Kidney: Significant hydronephrosis. No stones or mass observed. No perinephric fluid collection . The kidney is echogenic. Left Kidney: Significant hydronephrosis. No stones or mass observed. No perinephric fluid collectio n. The kidney is echogenic. Bladder: The bladder is largely decompressed and contains a Amador balloon. Air is noted within the santi men of the bladder. The bladder wall is significantly thickened. CONCLUSION: 1. Persistent hydronephrosis bilaterally despite placement of the Amador catheter and decompression o f the urinary bladder. The bladder wall is diffusely thickened. I cannot exclude ureteral obstruction bilaterally. Consider nuclear medicine study. Electronically signed by: Lucas Wynn MD 11/27/2017 11:19 AM EDT
[2017-11-27 11:27] LABS: BICARBONATE 18.3 MEQ/L (21.0-32.0); CALCIUM 8.1 MG/DL (8.5-10.1); CREATININE 7.72 MG/DL (0.60-1.30); MAGNESIUM 1.8 MG/DL (1.5-2.5)
[2017-11-27] MEDS ORDERED: PROPOFOL 200 MG/20 ML AMP IV ONE (12:00)
[2017-11-27] MEDS ORDERED: LIDOCAINE HCL 1% PF 5 ML SYRINGE OTHER ONE (12:00)
[2017-11-27] MEDS: INSULIN ASPART SUPPLEMENTAL SCALE SQ SCH ×3 (12:00→21:19)
[2017-11-27] MEDS: cloNIDine HCL 0.2 MG TAB PO PRN (12:40)
--- NOTE | 2017-11-27 13:00 | HHI.GIFU ---
Subjective Remarks Pt resting in bed States 2 BMs yesterday, did not notice any blood Started prep for colonoscopy yesterday, only finished half of it Denies nausea, vomiting States abdomen feels less distended today (Ida Roberts) Objective Vitals I&O Vital Signs Date Time Temp Pulse Resp B/P (MAP) Pulse Ox O2 Delivery O2 Flow Rate FiO2 11/27/17 08:00 97.2 94 18 160/91 (114) 99 11/27/17 04:00 98.1 99 17 157/84 (108) 98 11/27/17 03:56 107 11/27/17 00:00 97.7 101 17 159/82 (107) 98 11/26/17 23:43 93 11/26/17 20:00 97.1 100 17 175/87 (116) 98 11/26/17 19:49 97 21 11/26/17 19:41 122 11/26/17 16:27 97.9 114 18 145/97 (113) 97 11/26/17 13:03 97.6 93 16 146/81 (102) 100 I/O 11/26/17 11/26/17 11/26/17 11/27/17 11/27/17 11/27/17 07:00 15:00 23:00 07:00 15:00 23:00 Intake Total 1240 ml 2040 ml 1240 ml Output Total 2500 ml 2425 ml 3800 ml Balance -1260 ml -385 ml -2560 ml Intake Oral 240 ml 2040 ml 1240 ml IV Total 1000 ml Output Urine Total 2500 ml 2425 ml 3800 ml # Bowel Movements 1 1 4 Laboratory Laboratory Tests Test 11/26/17 15:36 11/27/17 10:18 Blood Urea Nitrogen 78 73 Creatinine 9.15 7.72 Random Glucose 321 214 Calcium Level 8.1 8.1 Sodium Level 129 131 Potassium Level 4.1 3.6 Chloride Level 92 93 Carbon Dioxide Level 18.5 18.3 Anion Gap 19 20 Estimat Glomerular Filtration Rate 6 7 White Blood Count 6.6 Red Blood Count 2.35 Hemoglobin 7.3 Hematocrit 21.3 Mean Corpuscular Volume 90.7 Mean Corpuscular Hemoglobin 31.3 Mean Corpuscular Hemoglobin Concent 34.5 Red Cell Distribution Width 13.7 Platelet Count 272 Mean Platelet Volume 8.0 Neutrophils (%) (Auto) 95.9 Lymphocytes (%) (Auto) 2.1 Monocytes (%) (Auto) 2.0 Eosinophils (%) (Auto) 0.0 Basophils (%) (Auto) 0.0 Neutrophils # (Auto) 6.3 Lymphocytes # (Auto) 0.1 Monocytes # (Auto) 0.1 Eosinophils # (Auto) 0.0 Basophils # (Auto) 0.0 CBC Comment DIFF FINAL Differential Comment Magnesium Level 1.8 Date/Time Source Procedure Growth Status 11/25/17 17:40 Urine Random Urine Urine Culture - Final NO GROWTH IN 48 HOURS. Complete Imaging Last Impressions Renal Ultrasound 11/27/17 0000 Signed Impressions: CONCLUSION: 1. Persistent hydronephrosis bilaterally despite placement of the Amador cathet er and decompression of the urinary bladder. The bladder wall is diffusely thic kened. I cannot exclude ureteral obstruction bilaterally. Consider nuclear medi cine study. Chest X-Ray 11/25/17 1141 Signed Impressions: CONCLUSION: Hyperinflation. Physical Exam HEENT: Normocephalic; atraumatic CHEST: Even/unlabored CARDIAC: RRR ABDOMEN: Soft, nondistended, nontender; bowel sounds active EXTREMITIES: No clubbing, cyanosis, or edema. SKIN: Normal; no rash; no jaundice. 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 (Ida Roberts) Assessment and Plan Assessment: (1) Rectal bleeding ICD Codes: K62.5 - Hemorrhage of anus and rectum Plan Assessment: - Anemia, normocytic with reports of rectal bleeding with chronic constipation States history of thrombosed hemorrhoids and anal fissure. Unsure if he has ever had colonoscopy in the past. Does not follow up with GI or colorectal doctor. Family history of colon cancer, father - Hepatitis C diagnosed 7-8 years ago, treatment naive ETOH almost daily- states will drink 4-5 beers for a few days in a row then go a few days with no beer LFTs WNL (11/27) Pt began prep for colonoscopy yesterday, drank half of the Golytely, reports 2 BMs yesterday were soft, did not notice any blood. States abdomen feels less distended today, denies pain, nausea, vomiting. Plan: Colonoscopy tomorrow Obtain consent Clear liquids today Golytely prep NPO after MN Hepatitis C treatment outpatient Further recommendations based on findings of above Pt has been seen and examined by myself and Dr. Stack and this note is written on his behalf (Ida Roberts) Physician Comments Passing clear BM's and no blood. Will plan to add him for colonoscopy today since he is passing clear stools. Made NPO already at 12 and had just clear liquid diet prior to that. Further recommendations to follow. (Monet Stack MD) Ida Roberts Nov 27, 2017 13:00 Monet Stack MD Nov 27, 2017 13:40
[2017-11-27] MEDS ORDERED: PEG (High)/E-LYTE SOLN 4000 ML BTL PO ONE (16:00)
--- NOTE | 2017-11-27 17:31 | GIPROC ---
[facility] [address] [facility]. [facility], [address] COLONOSCOPY PROCEDURE REPORT EXAM DATE: 11/27/2017 PATIENT NAME: Esteban Malagon MR #: [id number] BIRTHDATE: 1960 ENDOSCOPIST: Monet Stack MD ORDER #: [id number] EXPERIMENTAL BOX TESTER: Janel Morris and Bety Peterson STATUS: inpatient INDICATIONS: The patient is a 57 yr old male here for a colonoscopy due to hematochezia PROCEDURE PERFORMED: Colonoscopy with polypectomy MEDICATIONS: None and Per Anesthesia. PREP QUALITY: fair PREP TYPE:GoLytely ESTIMATED BLOOD LOSS: None CONSENT: The patient understands the risks and benefits of the procedure and understands that these risks include, but are not limited to: sedation, allergic reaction, infection, perforation and/or bleeding. Alternative means of evaluation and treatment include, among others: physical exam, x-rays, and/or surgical intervention. The patient elects to proceed with this endoscopic procedure. medical equipment was checked for proper function. Hand hygiene and appropriate measures for infection prevention was taken. After the risks, benefits and alternatives of the procedure were thoroughly explained, Informed consent was verified, confirmed and timeout was successfully executed by the treatment team. A digital exam revealed no abnormalities of the rectum The Pentax [id number] endoscope was introduced through the anus and advanced to the cecum, which was identified by both the appendix and ileocecal valve. The instrument was then slowly withdrawn as the colon was fully examined. COLON FINDINGS: Diverticulum was found in the sigmoid colon, descending colon, and ascending colon. The opening was large. A small smooth sessile polyp was found in the rectum. A polypectomy was performed with cold forceps. The resection was complete and the polyp tissue was completely retrieved. Large internal and external hemorrhoids were found. Retroflexed views revealed no abnormalities The scope was then completely withdrawn from the patient and the procedure terminated. PROCEDURE WITHDRAWAL TIME:9minutes ADVERSE EVENTS: There were no complications. IMPRESSIONS: 1. 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 A small sessile polyp was found in the rectum; polypectomy was performed with cold forceps 3. Large internal and external hemorrhoids 4. Rectal bleeding likely from Hemorrhoids. RECOMMENDATIONS: 1. Await biopsy results. Biopsy results will not be ready for 7-10 days. If you don't hear from us in two weeks, call our office for results. 2. No seeds, nuts and popcorn in diet 3. High fiber diet 4. Continue surveillance RECALL: Return 1 year Colonoscopy Monet Stack MD eSigned: Monet Stack MD 11/27/2017 5:31 PM cc: PATIENT NAME: Esteban Malagon MR#: [id number]
[2017-11-27] MEDS ORDERED: DO NOT ADM ANY ANTICOAGULANT DRUGS PRN (17:32)
[2017-11-27] MEDS ORDERED: MIDAZOLAM HCL 2 MG/2 ML VIAL ONE (19:03)
[2017-11-27] MEDS: TAMSULOSIN HCL 0.4 MG CAP PO SCH (21:10)
[2017-11-28] VITALS (11 sets, daily range): BP systolic 138–177; BP diastolic 67–94; PULSE 78–109; RESP 16–20; TEMP 96.8–98; O2SAT 95–100
[2017-11-28 07:23] LABS: AUTOMATED NEUTROPHIL # 5.8 TH/MM3 (1.8-7.7); BASOPHIL % 0.1 % (0.0-2.0); HEMATOCRIT 21.1 % (39.0-51.0); HEMOGLOBIN 7.1 GM/DL (13.0-17.0); LYMPH % 1.7 % (9.0-44.0); LYMPHOCYTE # 0.1 TH/MM3 (1.0-4.8); MEAN CELL VOLUME 90.7 FL (80.0-100.0); MEAN CORPUSCULAR HEMOGLOBIN 30.6 PG (27.0-34.0); MEAN CORPUSCULAR HGB CONC 33.8 % (32.0-36.0); MEAN PLATELET VOLUME 7.7 FL (7.0-11.0); MONO % 1.9 % (0.0-8.0); MONOCYTE # 0.1 TH/MM3 (0-0.9); NEUT % 96.3 % (16.0-70.0); PLATELET COUNT 290 TH/MM3 (150-450); RED BLOOD COUNT 2.33 MIL/MM3 (4.50-5.90); WHITE BLOOD COUNT 6.1 TH/MM3 (4.0-11.0)
[2017-11-28 07:34] LABS: BICARBONATE 22.1 MEQ/L (21.0-32.0); CALCIUM 8.5 MG/DL (8.5-10.1); CREATININE 6.95 MG/DL (0.60-1.30)
[2017-11-28] MEDS ORDERED: SODIUM CHLOR 0.9% 250 ML INJ 250 ML IV ONE (07:45)
[2017-11-28] MEDS: INSULIN ASPART SUPPLEMENTAL SCALE SQ SCH ×4 (08:00→20:42)
[2017-11-28] MEDS: REMOVE OLD PATCH T-DERMAL SCH (09:00)
[2017-11-28] MEDS: NICOTINE 21 MG/24 HR PATCH T-DERMAL SCH (09:04)
[2017-11-28] MEDS: PANTOPRAZOLE SOD 40 MG DELAYED RELEASE TAB PO SCH (09:04)
[2017-11-28] MEDS: FOLIC ACID 1 MG TAB PO SCH (09:04)
[2017-11-28] MEDS: THIAMINE HCL 100 MG TAB PO SCH (09:05)
[2017-11-28] MEDS: methylPREDNISolone SOD SUCC 125 MG/2 ML VIAL IV PUSH SCH (09:05)
[2017-11-28] MEDS: SODIUM CHLORIDE 0.9% FLUSH 10 ML FLUSH IV FLUSH SCH ×2 (09:06→20:40)
--- NOTE | 2017-11-28 09:40 | HHI.PR ---
Subjective Remarks Patient c/o being hungry patient reports feeling better today than he has in over 1.5 years Objective Vitals Vital Signs Date Time Temp Pulse Resp B/P (MAP) Pulse Ox O2 Delivery O2 Flow Rate FiO2 11/28/17 08:00 97.6 83 18 159/78 (105) 100 11/28/17 04:00 97.6 95 18 138/67 (90) 99 11/28/17 00:00 97.7 109 20 145/80 (101) 95 11/27/17 20:00 97.7 119 20 168/82 (110) 98 11/27/17 18:00 85 20 154/93 (113) 100 Nasal Cannula 2 11/27/17 17:45 97 20 134/68 (90) 100 Nasal Cannula 2 11/27/17 17:36 97.6 83 20 152/84 (106) 99 Nasal Cannula 2 11/27/17 16:00 97.9 93 16 149/81 (103) 99 11/27/17 12:00 97.5 91 18 173/93 (119) 98 Result Diagram: 11/28/17 0639 11/28/17 0639 Other Results Laboratory Tests Test 11/25/17 10:30 11/25/17 17:40 11/26/17 06:33 11/26/17 15:36 White Blood Count 5.5 TH/MM3 1.9 TH/MM3 Red Blood Count 2.82 MIL/MM3 2.58 MIL/MM3 Hemoglobin 8.8 GM/DL 8.0 GM/DL Hematocrit 25.9 % 23.7 % Mean Corpuscular Volume 91.7 FL 91.8 FL Mean Corpuscular Hemoglobin 31.2 PG 31.2 PG Mean Corpuscular Hemoglobin Concent 34.0 % 33.9 % Red Cell Distribution Width 14.1 % 13.8 % Platelet Count 285 TH/MM3 249 TH/MM3 Mean Platelet Volume 7.3 FL 7.7 FL Neutrophils (%) (Auto) 73.0 % 88.6 % Lymphocytes (%) (Auto) 12.8 % 9.3 % Monocytes (%) (Auto) 11.3 % 1.7 % Eosinophils (%) (Auto) 2.5 % 0.3 % Basophils (%) (Auto) 0.4 % 0.1 % Neutrophils # (Auto) 4.0 TH/MM3 1.7 TH/MM3 Lymphocytes # (Auto) 0.7 TH/MM3 0.2 TH/MM3 Monocytes # (Auto) 0.6 TH/MM3 0.0 TH/MM3 Eosinophils # (Auto) 0.1 TH/MM3 0.0 TH/MM3 Basophils # (Auto) 0.0 TH/MM3 0.0 TH/MM3 CBC Comment DIFF FINAL AUTO DIFF Differential Comment FINAL DIFF MANUAL Blood Urea Nitrogen 82 MG/DL 79 MG/DL 78 MG/DL Creatinine 10.55 MG/DL 9.55 MG/DL 9.15 MG/DL Random Glucose 92 MG/DL 160 MG/DL 321 MG/DL Total Protein 7.4 GM/DL Albumin 3.4 GM/DL Calcium Level 8.4 MG/DL 8.3 MG/DL 8.1 MG/DL Phosphorus Level 8.6 MG/DL Magnesium Level 2.4 MG/DL Alkaline Phosphatase 89 U/L Aspartate Amino Transf (AST/SGOT) 12 U/L Alanine Aminotransferase (ALT/SGPT) 13 U/L Total Bilirubin 0.3 MG/DL Sodium Level 128 MEQ/L 127 MEQ/L 129 MEQ/L Potassium Level 5.1 MEQ/L 5.7 MEQ/L 4.1 MEQ/L Chloride Level 94 MEQ/L 94 MEQ/L 92 MEQ/L Carbon Dioxide Level 18.3 MEQ/L 17.5 MEQ/L 18.5 MEQ/L Anion Gap 16 MEQ/L 16 MEQ/L 19 MEQ/L Estimat Glomerular Filtration Rate 5 ML/MIN 6 ML/MIN 6 ML/MIN Urine Color LIGHT-YELLOW Urine Turbidity CLEAR Urine pH 7.5 Urine Specific [place] 1.014 Urine Protein 300 mg/dL Urine Glucose (UA) 70 mg/dL Urine Ketones NEG mg/dL Urine Occult Blood MOD Urine Nitrite NEG Urine Bilirubin NEG Urine Urobilinogen LESS THAN 2.0 MG/DL Urine Leukocyte Esterase NEG Urine RBC /hpf Urine WBC 49 /hpf Urine Bacteria OCC /hpf Microscopic Urinalysis Comment CULTURE INDICATED Differential Total Cells Counted 100 Neutrophils % (Manual) 92 % Band Neutrophils % 1 % Lymphocytes % 7 % Neutrophils # (Manual) 1.8 TH/MM3 Platelet Estimate NORMAL Platelet Morphology Comment NORMAL Ovalocytes 1+ Test 11/27/17 10:18 11/28/17 06:39 White Blood Count 6.6 TH/MM3 6.1 TH/MM3 Red Blood Count 2.35 MIL/MM3 2.33 MIL/MM3 Hemoglobin 7.3 GM/DL 7.1 GM/DL Hematocrit 21.3 % 21.1 % Mean Corpuscular Volume 90.7 FL 90.7 FL Mean Corpuscular Hemoglobin 31.3 PG 30.6 PG Mean Corpuscular Hemoglobin Concent 34.5 % 33.8 % Red Cell Distribution Width 13.7 % 14.0 % Platelet Count 272 TH/MM3 290 TH/MM3 Mean Platelet Volume 8.0 FL 7.7 FL Neutrophils (%) (Auto) 95.9 % 96.3 % Lymphocytes (%) (Auto) 2.1 % 1.7 % Monocytes (%) (Auto) 2.0 % 1.9 % Eosinophils (%) (Auto) 0.0 % 0.0 % Basophils (%) (Auto) 0.0 % 0.1 % Neutrophils # (Auto) 6.3 TH/MM3 5.8 TH/MM3 Lymphocytes # (Auto) 0.1 TH/MM3 0.1 TH/MM3 Monocytes # (Auto) 0.1 TH/MM3 0.1 TH/MM3 Eosinophils # (Auto) 0.0 TH/MM3 0.0 TH/MM3 Basophils # (Auto) 0.0 TH/MM3 0.0 TH/MM3 CBC Comment DIFF FINAL DIFF FINAL Differential Comment Blood Urea Nitrogen 73 MG/DL 68 MG/DL Creatinine 7.72 MG/DL 6.95 MG/DL Random Glucose 214 MG/DL 135 MG/DL Calcium Level 8.1 MG/DL 8.5 MG/DL Magnesium Level 1.8 MG/DL Sodium Level 131 MEQ/L 138 MEQ/L Potassium Level 3.6 MEQ/L 3.3 MEQ/L Chloride Level 93 MEQ/L 99 MEQ/L Carbon Dioxide Level 18.3 MEQ/L 22.1 MEQ/L Anion Gap 20 MEQ/L 17 MEQ/L Estimat Glomerular Filtration Rate 7 ML/MIN 8 ML/MIN Imaging Last Impressions Chest X-Ray 11/25/17 1141 Signed Impressions: CONCLUSION: Hyperinflation. Objective Remarks GENERAL: This is a thin, well-developed patient, in no apparent distress. CARDIOVASCULAR: Regular rate and rhythm RESPIRATORY: Clear to auscultation. Breath sounds equal bilaterally. GASTROINTESTINAL: Abdomen soft, non-tender, nondistended. Normal active bowel sounds GENITOURINARY: Iraheta in place draining blood tinged urine MUSCULOSKELETAL: Extremities without clubbing, cyanosis, or edema. NEURO: Alert & Oriented x4 to person, place, time, situation. Moves all ext x4 A/P Problem List: (1) TRISHA (acute kidney injury) ICD Codes: N17.9 - Acute kidney failure, unspecified Plan: TRISHA (acute kidney injury) TRISHA likely secondary to obstructive uropathy Per ER physician urinary bladder 4 cm above umbilicus on initial exam CT abdomen pelvis done 11/24/2017 reviewed and reveals pronounced bladder dilation and bladder hydronephrosis Iraheta catheter placed in emergency department 1.5 L returned then iraheta was clamped On admission creatinine was 10.55 -> 9.55 (11/26) -> 9.15 (11/26 1536) -> 7.72 () -> 6.95 (11/28) Flomax 0.4 mg QHS Consultation placed to urology, no surgical intervention at this time. Recommend DC patient with iraheta in place and outpatient follow up with Urology renal US (11/27) reviewed and reveals persistent hydronephrosis bilaterally despite placement of Irhaeta catheter and decompression of the urinary bladder the bladder wall is diffusely thickened. I cannot exclude urethral obstruction bilaterally. Consider nuclear medicine study. - (11/28) Discussed results of US with Dr. Butt. He is aware and has reviewed the US as well as the creatinine. Dr. Butt states he will continue to follow this patient in his clinic after DC, no need to do nuclear medicine study at this time. Recheck BMP in a.m. continue IV fluids for hydration DVT prophylaxis with SCDs Anemia likely secondary to blood loss from iraheta and rectal bleeding as well as hydration hgb 7.1, hct 21.1 will give 2 units PRBC s today recheck CBC in AM Hyponatremia- resolved Patient has daily EtOH use Encourage p.o. hydration IV fluids for hydration Recheck BMP in a.m. ETOH abuse Patient counseled and encouraged to abstain CIWA protocol Tobacco dependency Patient counseled encouraged to abstain Nicotine patch in place COPD exacerbation Solumedrol 60 mg IV Q12H -> (11/28) transitioned to prednisone 30 mg PO BID patient will need to continue to taper Steroid induced hyperglycemia blood glucose elevate on BMP likely reactive due to steroids add accu checks ACHS with SSI coverage Hyperkalemia Kayexalate 30 gm ordered x 1 (11/26) recheck 11/26 1536 4.1 Rectal bleeding Patient has intermitted rectal bleeding. Patient reports this occurs 1-3 times per week Hemoccult stools pending GI consult, appreciate input s/p colonoscopy 11/27 IMPRESSIONS: 1. 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 A small sessile polyp was found in the rectum; polypectomy was performed with cold forceps 3. Large internal and external hemorrhoids 4. Rectal bleeding likely from Hemorrhoids. RECOMMENDATIONS: 1. Await biopsy results. Biopsy results will not be ready or 7-10 days. If you don't hear from us in two weeks, call our office for results. 2. No seeds, nuts and popcorn in diet 3. High fiber diet 4. Continue surveillance RECALL: Return 1 year Colonoscopy patient would like hemorrhoids addressed further. Patient will likely need follow up with colorectal surgery outpatient after DC. (2) Hyponatremia ICD Codes: E87.1 - Hypo-osmolality and hyponatremia (3) ETOH abuse ICD Codes: F10.10 - Alcohol abuse, uncomplicated (4) Tobacco dependency ICD Codes: F17.200 - Nicotine dependence, unspecified, uncomplicated (5) Hyperkalemia ICD Codes: E87.5 - Hyperkalemia (6) Rectal bleeding ICD Codes: K62.5 - Hemorrhage of anus and rectum Assessment and Plan Patient examined. Assessment and plan formulated with Malaika Seth PA-C. I agree with the above. obstructive uropathy. trisha.slow improvement. ureters still dilated ?renal scan..defer to urology. cont iraheta and plan to dc with iraheta cont ivf and monitor cr. will need crs referral for hemorrohoids 2 units blood for blood loss anemia hopefully d/c tomorrow. Malaika Seth Nov 28, 2017 09:40 Kristian Boland MD Nov 28, 2017 12:58
[2017-11-28] MEDS: RESP: ALBUTEROL 2.5 MG/IPRATROPIUM 0.5 MG NEB (SCH) NEB ×3 (10:03→20:18)
[2017-11-28] MEDS ORDERED: PILL SPLITTER OTHER PRN (10:15)
[2017-11-28] MEDS: cloNIDine HCL 0.2 MG TAB PO PRN (13:05)
--- NOTE | 2017-11-28 13:10 | HHI.GIFU ---
Subjective Remarks Pt reports BMs since colonoscopy yesterday Denies any blood in stool Denies nausea, vomiting, abdominal pain (Ida Roberts) Objective Vitals I&O Vital Signs Date Time Temp Pulse Resp B/P (MAP) Pulse Ox O2 Delivery O2 Flow Rate FiO2 11/28/17 12:43 96.8 93 16 172/91 99 11/28/17 10:05 99 21 11/28/17 08:00 97.6 83 18 159/78 (105) 100 11/28/17 04:00 97.6 95 18 138/67 (90) 99 11/28/17 00:00 97.7 109 20 145/80 (101) 95 11/27/17 20:00 97.7 119 20 168/82 (110) 98 11/27/17 18:00 85 20 154/93 (113) 100 Nasal Cannula 2 11/27/17 17:45 97 20 134/68 (90) 100 Nasal Cannula 2 11/27/17 17:36 97.6 83 20 152/84 (106) 99 Nasal Cannula 2 11/27/17 16:00 97.9 93 16 149/81 (103) 99 I/O 11/27/17 11/27/17 11/27/17 11/28/17 11/28/17 11/28/17 07:00 15:00 23:00 07:00 15:00 23:00 Intake Total 1240 ml 1200 ml Output Total 3800 ml 1925 ml 250 ml 1650 ml Balance -2560 ml -1925 ml 950 ml -1650 ml Intake Oral 1240 ml 1200 ml Output Urine Total 3800 ml 1925 ml 250 ml 1650 ml # Bowel Movements 4 1 Laboratory Laboratory Tests Test 11/28/17 06:39 White Blood Count 6.1 Red Blood Count 2.33 Hemoglobin 7.1 Hematocrit 21.1 Mean Corpuscular Volume 90.7 Mean Corpuscular Hemoglobin 30.6 Mean Corpuscular Hemoglobin Concent 33.8 Red Cell Distribution Width 14.0 Platelet Count 290 Mean Platelet Volume 7.7 Neutrophils (%) (Auto) 96.3 Lymphocytes (%) (Auto) 1.7 Monocytes (%) (Auto) 1.9 Eosinophils (%) (Auto) 0.0 Basophils (%) (Auto) 0.1 Neutrophils # (Auto) 5.8 Lymphocytes # (Auto) 0.1 Monocytes # (Auto) 0.1 Eosinophils # (Auto) 0.0 Basophils # (Auto) 0.0 CBC Comment DIFF FINAL Differential Comment Blood Urea Nitrogen 68 Creatinine 6.95 Random Glucose 135 Calcium Level 8.5 Sodium Level 138 Potassium Level 3.3 Chloride Level 99 Carbon Dioxide Level 22.1 Anion Gap 17 Estimat Glomerular Filtration Rate 8 Date/Time Source Procedure Growth Status 11/25/17 17:40 Urine Random Urine Urine Culture - Final NO GROWTH IN 48 HOURS. Complete Imaging Last Impressions Renal Ultrasound 11/27/17 0000 Signed Impressions: CONCLUSION: 1. Persistent hydronephrosis bilaterally despite placement of the Amador cathet er and decompression of the urinary bladder. The bladder wall is diffusely thic kened. I cannot exclude ureteral obstruction bilaterally. Consider nuclear medi cine study. Chest X-Ray 11/25/17 1141 Signed Impressions: CONCLUSION: Hyperinflation. Physical Exam HEENT: Normocephalic; atraumatic CHEST: Even/unlabored CARDIAC: RRR ABDOMEN: Soft, nondistended, nontender; bowel sounds active EXTREMITIES: No clubbing, cyanosis, or edema. SKIN: Normal; no rash; no jaundice. FISH FLIPPER: Alert and oriented times three. (Ida Roberts [facility]) Assessment and Plan Assessment: (1) Rectal bleeding ICD Codes: K62.5 - Hemorrhage of anus and rectum Plan Assessment: - Anemia, normocytic with reports of rectal bleeding with chronic constipation States history of thrombosed hemorrhoids and anal fissure. Unsure if he has ever had colonoscopy in the past. Does not follow up with GI or colorectal doctor. Family history of colon cancer, father - Hepatitis C diagnosed 7-8 years ago, treatment naive ETOH almost daily- states will drink 4-5 beers for a few days in a row then go a few days with no beer LFTs WNL (11/27) Pt began prep for colonoscopy yesterday, drank half of the [place], reports 2 BMs yesterday were soft, did not notice any blood. States abdomen feels less distended today, denies pain, nausea, vomiting. (11/28) S/P colonoscopy yesterday. Reports BMs since procedure, denies any continued bleeding. H/H stable overnight. Pt tolerating PO. Plan: Bowel regimen to prevent straining TAMIE Monitor H/H Notify GI if any further bleeding Hepatitis C treatment outpatient GI will sign off, please reconsult as needed Have pt follow up with GI after DC Pt has been seen and examined by myself and Dr. Stack and this note is written on his behalf (Ida Roberts) Physician Comments As above, no active GI problem at this time. Please notify us if needed again. (Monet Stack MD) Ida Roberts Nov 28, 2017 13:10 Monet Stack MD Nov 28, 2017 23:14
[2017-11-28] MEDS ORDERED: POTASSIUM CHLORIDE 20 MEQ CONTROLLED RELEASE TAB PO ONE (14:15)
[2017-11-28] MEDS: SODIUM CHLOR 0.9% 1000 ML INJ 1,000 ML IV SCH (19:45)
[2017-11-28] MEDS: TAMSULOSIN HCL 0.4 MG CAP PO SCH (20:39)
[2017-11-28] MEDS: predniSONE 20 MG TAB PO SCH (20:39)
[2017-11-29] VITALS (11 sets, daily range): BP systolic 150–173; BP diastolic 87–103; PULSE 65–87; RESP 18–20; TEMP 97.4–98.6; O2SAT 97–100
[2017-11-29] MEDS: INSULIN ASPART SUPPLEMENTAL SCALE SQ SCH ×4 (07:27→19:43)
[2017-11-29] MEDS: RESP: ALBUTEROL 2.5 MG/IPRATROPIUM 0.5 MG NEB (SCH) NEB ×3 (08:08→19:48)
--- NOTE | 2017-11-29 08:22 | HHI.PR ---
Subjective Remarks Pt is getting frustrated with his continued stay His urine is still blood tinged UOP decreased to 4000ml yesterday Objective Vitals Vital Signs Date Time Temp Pulse Resp B/P (MAP) Pulse Ox O2 Delivery O2 Flow Rate FiO2 11/29/17 04:00 97.6 68 20 150/87 (108) 100 11/29/17 03:30 84 11/29/17 00:10 87 11/29/17 00:00 97.5 80 20 166/99 (121) 99 11/28/17 20:22 99 11/28/17 20:00 98.0 78 20 161/94 (116) 95 11/28/17 19:56 78 11/28/17 16:16 97.7 84 18 167/82 99 11/28/17 16:00 97.6 97 18 168/81 (110) 97 11/28/17 13:06 97.7 94 16 177/87 99 11/28/17 12:43 96.8 93 16 172/91 99 11/28/17 10:05 99 21 Result Diagram: 11/28/17 0639 11/28/17 0639 Other Results Laboratory Tests Test 11/27/17 10:18 11/28/17 06:39 White Blood Count 6.6 TH/MM3 6.1 TH/MM3 Red Blood Count 2.35 MIL/MM3 2.33 MIL/MM3 Hemoglobin 7.3 GM/DL 7.1 GM/DL Hematocrit 21.3 % 21.1 % Mean Corpuscular Volume 90.7 FL 90.7 FL Mean Corpuscular Hemoglobin 31.3 PG 30.6 PG Mean Corpuscular Hemoglobin Concent 34.5 % 33.8 % Red Cell Distribution Width 13.7 % 14.0 % Platelet Count 272 TH/MM3 290 TH/MM3 Mean Platelet Volume 8.0 FL 7.7 FL Neutrophils (%) (Auto) 95.9 % 96.3 % Lymphocytes (%) (Auto) 2.1 % 1.7 % Monocytes (%) (Auto) 2.0 % 1.9 % Eosinophils (%) (Auto) 0.0 % 0.0 % Basophils (%) (Auto) 0.0 % 0.1 % Neutrophils # (Auto) 6.3 TH/MM3 5.8 TH/MM3 Lymphocytes # (Auto) 0.1 TH/MM3 0.1 TH/MM3 Monocytes # (Auto) 0.1 TH/MM3 0.1 TH/MM3 Eosinophils # (Auto) 0.0 TH/MM3 0.0 TH/MM3 Basophils # (Auto) 0.0 TH/MM3 0.0 TH/MM3 CBC Comment DIFF FINAL DIFF FINAL Differential Comment Blood Urea Nitrogen 73 MG/DL 68 MG/DL Creatinine 7.72 MG/DL 6.95 MG/DL Random Glucose 214 MG/DL 135 MG/DL Calcium Level 8.1 MG/DL 8.5 MG/DL Magnesium Level 1.8 MG/DL Sodium Level 131 MEQ/L 138 MEQ/L Potassium Level 3.6 MEQ/L 3.3 MEQ/L Chloride Level 93 MEQ/L 99 MEQ/L Carbon Dioxide Level 18.3 MEQ/L 22.1 MEQ/L Anion Gap 20 MEQ/L 17 MEQ/L Estimat Glomerular Filtration Rate 7 ML/MIN 8 ML/MIN Imaging Last Impressions Chest X-Ray 11/25/17 1141 Signed Impressions: CONCLUSION: Hyperinflation. Objective Remarks GENERAL: This is a thin, well-developed patient, in no apparent distress. CARDIO: Regular RESP: CTA bilaterally. ABD: +BS, soft, non-tender, nondistended. : Iraheta in place draining blood tinged urine EXT: Extremities without clubbing, cyanosis, or edema. NEURO: Alert & Oriented x4 to person, place, time, situation. Moves all ext x4 A/P Problem List: (1) TRISHA (acute kidney injury) ICD Codes: N17.9 - Acute kidney failure, unspecified Plan: TRISHA (acute kidney injury) - Patient is a 57 y/o male with asthma, nicotine dependence, EtOH abuse, hepatitis C, alcoholic fatty liver, hyperlipidemia. The patient presents to the emergency department for difficulty with urinating. - TRISHA likely secondary to obstructive uropathy - Per ER physician urinary bladder 4 cm above umbilicus on initial exam - CT abdomen/pelvis on 11/24/2017 reviewed and reveals pronounced bladder dilation and bladder hydronephrosis - Iraheta catheter placed in emergency department 1.5 L returned then iraheta was clamped - On admission creatinine was 10.55 -> 9.55 (11/26) -> 9.15 (11/26 1536) -> 7.72 ( 11/27) -> 6.95 (11/28) - Pt started on Flomax 0.4 mg QHS - Consultation placed to urology, no surgical intervention at this time. Recommend DC patient with Iraheta in place and outpatient follow up with Urology - Renal US (11/27) --> persistent hydronephrosis bilaterally despite placement of Iraheta catheter and decompression of the urinary bladder the bladder wall is diffusely thickened. I cannot exclude urethral obstruction bilaterally. Consider nuclear medicine study. - On 11/28, case discussed with Dr. Butt. He is aware and has reviewed the US as well as the creatinine. Dr. Butt states he will continue to follow this patient in his clinic after DC, no need to do nuclear medicine study at this time. - Continue IV fluids for hydration - Repeat BMP is pending. - DVT prophylaxis with SCDs Anemia - Likely secondary to blood loss from Iraheta and rectal bleeding as well as hydration - Repeat hgb 7.1, hct 21.1 on 11/28 - Pt was given 2 units PRBCs on 11/28 - Await recheck CBC this morning Hyponatremia- resolved - Patient has daily EtOH use - Encourage p.o. hydration - IV fluids for hydration - Await repeat BMP this morning ETOH abuse - Patient counseled and encouraged to abstain - CIWA protocol - Pt is on Librium 25mg TID PRN Tobacco dependency - Patient counseled encouraged to abstain - Nicotine patch in place COPD exacerbation - Solu-Medrol 60 mg IV Q12H -> (11/28) transitioned to prednisone 30 mg PO BID - Duonebs Q6H WA and Q2H PRN - patient will need to continue to taper Steroid induced hyperglycemia - Blood glucose elevate on BMP likely reactive due to steroids - Accu checks ACHS with SSI coverage Hyperkalemia - Kayexalate 30 gm ordered x 1 (11/26) - Recheck on 11/26 4.1 Rectal bleeding - Patient has intermitted rectal bleeding. Patient reports this occurs 1-3 times per week - GI consulted, appreciate input - Colonoscopy on 11/27 --> Diverticulum in the sigmoid colon, descending colon, and ascending colon, small sessile polyp was found in the rectum, large internal and external hemorrhoids - GI felt the rectal bleeding likely from hemorrhoids. - GI recommending 1 year repeat colonoscopy - Patient would likely need hemorrhoids addressed further and will need follow up with colorectal surgery outpatient after DC. (2) Hyponatremia ICD Codes: E87.1 - Hypo-osmolality and hyponatremia (3) ETOH abuse ICD Codes: F10.10 - Alcohol abuse, uncomplicated (4) Tobacco dependency ICD Codes: F17.200 - Nicotine dependence, unspecified, uncomplicated (5) Hyperkalemia ICD Codes: E87.5 - Hyperkalemia (6) Rectal bleeding ICD Codes: K62.5 - Hemorrhage of anus and rectum Kimberly Levine Nov 29, 2017 08:22
[2017-11-29 08:30] LABS: AUTOMATED NEUTROPHIL # 5.5 TH/MM3 (1.8-7.7); HEMATOCRIT 25.8 % (39.0-51.0); LYMPH % 2.8 % (9.0-44.0); LYMPHOCYTE # 0.2 TH/MM3 (1.0-4.8); MEAN CELL VOLUME 88.8 FL (80.0-100.0); MEAN CORPUSCULAR HGB CONC 34.9 % (32.0-36.0); MEAN PLATELET VOLUME 7.9 FL (7.0-11.0); MONO % 4.3 % (0.0-8.0); MONOCYTE # 0.3 TH/MM3 (0-0.9); NEUT % 92.9 % (16.0-70.0); PLATELET COUNT 255 TH/MM3 (150-450); RED CELL DISTRIBUTION WIDTH 14.7 % (11.6-17.2); WHITE BLOOD COUNT 5.9 TH/MM3 (4.0-11.0)
[2017-11-29] MEDS: SODIUM CHLORIDE 0.9% FLUSH 10 ML FLUSH IV FLUSH SCH ×2 (08:32→19:34)
[2017-11-29] MEDS: FOLIC ACID 1 MG TAB PO SCH (08:33)
[2017-11-29] MEDS: THIAMINE HCL 100 MG TAB PO SCH (08:33)
[2017-11-29] MEDS: PANTOPRAZOLE SOD 40 MG DELAYED RELEASE TAB PO SCH (08:33)
[2017-11-29] MEDS: REMOVE OLD PATCH T-DERMAL SCH (08:34)
[2017-11-29] MEDS: predniSONE 20 MG TAB PO SCH ×2 (08:34→19:34)
[2017-11-29] MEDS: NICOTINE 21 MG/24 HR PATCH T-DERMAL SCH (08:34)
[2017-11-29] MEDS: SODIUM CHLOR 0.9% 1000 ML INJ 1,000 ML IV SCH ×2 (08:34→22:25)
[2017-11-29 09:01] LABS: BICARBONATE 21.7 MEQ/L (21.0-32.0); CALCIUM 8.8 MG/DL (8.5-10.1); CREATININE 6.28 MG/DL (0.60-1.30)
[2017-11-29] MEDS ORDERED: POTASSIUM CHLORIDE 20 MEQ CONTROLLED RELEASE TAB PO ONE (09:25)
[2017-11-29] MEDS: TAMSULOSIN HCL 0.4 MG CAP PO SCH (19:34)
[2017-11-30] VITALS: BP 169/93; PULSE 73; RESP 18; TEMP 98.6; O2SAT 98
[2017-11-30 03:45] VITALS: PULSE 75
[2017-11-30 04:00] VITALS: BP 156/85; PULSE 74; RESP 18; TEMP 98.6; O2SAT 94
[2017-11-30 06:21] LABS: AUTOMATED NEUTROPHIL # 5.3 TH/MM3 (1.8-7.7); BASOPHIL % 0.1 % (0.0-2.0); HEMATOCRIT 25.9 % (39.0-51.0); HEMOGLOBIN 8.8 GM/DL (13.0-17.0); LYMPH % 3.9 % (9.0-44.0); LYMPHOCYTE # 0.2 TH/MM3 (1.0-4.8); MEAN CELL VOLUME 89.5 FL (80.0-100.0); MEAN CORPUSCULAR HEMOGLOBIN 30.2 PG (27.0-34.0); MEAN CORPUSCULAR HGB CONC 33.7 % (32.0-36.0); MEAN PLATELET VOLUME 7.8 FL (7.0-11.0); MONO % 4.4 % (0.0-8.0); MONOCYTE # 0.3 TH/MM3 (0-0.9); NEUT % 91.6 % (16.0-70.0); PLATELET COUNT 275 TH/MM3 (150-450); RED CELL DISTRIBUTION WIDTH 14.5 % (11.6-17.2); WHITE BLOOD COUNT 5.7 TH/MM3 (4.0-11.0)
[2017-11-30 06:34] LABS: BICARBONATE 21.7 MEQ/L (21.0-32.0); CALCIUM 8.3 MG/DL (8.5-10.1); CREATININE 5.49 MG/DL (0.60-1.30); MAGNESIUM 1.6 MG/DL (1.5-2.5)
[2017-11-30 08:00] VITALS: BP 171/99; PULSE 80; RESP 19; TEMP 97.6; O2SAT 100
[2017-11-30] MEDS: INSULIN ASPART SUPPLEMENTAL SCALE SQ SCH ×2 (08:00→12:04)
[2017-11-30] MEDS: NICOTINE 21 MG/24 HR PATCH T-DERMAL SCH (08:08)
[2017-11-30] MEDS: REMOVE OLD PATCH T-DERMAL SCH (08:08)
[2017-11-30] MEDS: predniSONE 20 MG TAB PO SCH (08:08)
[2017-11-30] MEDS: SODIUM CHLORIDE 0.9% FLUSH 10 ML FLUSH IV FLUSH SCH (08:08)
[2017-11-30] MEDS: PANTOPRAZOLE SOD 40 MG DELAYED RELEASE TAB PO SCH (08:08)
[2017-11-30] MEDS: FOLIC ACID 1 MG TAB PO SCH (08:08)
[2017-11-30] MEDS: THIAMINE HCL 100 MG TAB PO SCH (08:08)
[2017-11-30] MEDS ORDERED: NEBULIZER/ADULT1 KIT (10:11)
[2017-11-30] MEDS ORDERED: THIA100 PO (10:11)
[2017-11-30] MEDS ORDERED: FOLI1TAB6 PO (10:11)
[2017-11-30] MEDS ORDERED: IPRA0.02 NEB (10:11)
[2017-11-30] MEDS ORDERED: ALBU0.08 NEB (10:11)
[2017-11-30] MEDS ORDERED: TAMS5CAP PO (10:11)
[2017-11-30] MEDS ORDERED: PRED20 PO ×2 (10:11→10:33)
[2017-11-30] MEDS ORDERED: PANT40TA3 PO (10:11)
--- NOTE | 2017-11-30 10:19 | HHI.FF ---
Face to Face Verification Diagnosis: (1) Obstructive uropathy (2) Rectal bleeding (3) Hemorrhoids (4) COPD (chronic obstructive pulmonary disease) (5) Hyperkalemia (6) Acute renal failure (7) Hyponatremia (8) Tobacco dependency (9) Hepatitis C (10) ETOH abuse Home Health Nursing Order: Medical education Nursing assessment with vital signs Amador catheter maintenance Instructions: Pt needs blood work drawn on 12/04/17, with a CBC and CMP with results to Dr. Drew Butt (Urology) I have seen patient Esteban Malagon on 11/30/17. My clinical findings support the need for the requested home health care services because: Med compliance is questionable I certify that my clinical findings support that this patient is homebound because: Hx COPD- exertion dyspnea/weakness Need for psychosocial assistance Kimberly Levine Nov 30, 2017 10:19 Kristian Boland MD Dec 01, 2017 09:15
--- NOTE | 2017-11-30 10:20 | HHI.DCPOC ---
Discharge Care Plan Diagnosis: (1) Hyponatremia (2) TRISHA (acute kidney injury) (3) Tobacco dependency (4) Acute renal failure (5) Hyperkalemia (6) COPD (chronic obstructive pulmonary disease) (7) Obstructive uropathy (8) Rectal bleeding (9) Hemorrhoids (10) Hepatitis C Goals to Promote Your Health * To prevent worsening of your condition and complications * To maintain your health at the optimal level Directions to Meet Your Goals Take your medications as prescribed Follow your dietary instruction Follow activity as directed Keep your appointments as scheduled Take your immunizations and boosters as scheduled If your symptoms worsen call your PCP, if no PCP go to Urgent Care Center or Emergency Room Smoking is Dangerous to Your Health. Avoid second hand smoke Call the 24-hour hour crisis hotline for domestic abuse at Kimberly Levine Nov 30, 2017 10:20
--- NOTE | 2017-11-30 10:38 | HHI.DS ---
Discharge Summary Admission Date Nov 25, 2017 at 12:28 Discharge Date: Nov 30, 2017 Admitting Diagnosis Acute kidney injury with obstructive uropathy (1) TRISHA (acute kidney injury) Diagnosis: Principal ICD Codes: N17.9 - Acute kidney failure, unspecified Status: Acute (2) Hyponatremia Diagnosis: Secondary ICD Codes: E87.1 - Hypo-osmolality and hyponatremia Status: Acute (3) ETOH abuse Diagnosis: Secondary ICD Codes: F10.10 - Alcohol abuse, uncomplicated Status: Chronic (4) Tobacco dependency Diagnosis: Secondary ICD Codes: F17.200 - Nicotine dependence, unspecified, uncomplicated Status: Chronic (5) Hyperkalemia Diagnosis: Secondary ICD Codes: E87.5 - Hyperkalemia Status: Acute (6) Rectal bleeding Diagnosis: Secondary ICD Codes: K62.5 - Hemorrhage of anus and rectum Status: Chronic (7) COPD (chronic obstructive pulmonary disease) Diagnosis: Secondary ICD Codes: J44.9 - Chronic obstructive pulmonary disease, unspecified Status: Chronic (8) Obstructive uropathy Diagnosis: Principal ICD Codes: N13.9 - Obstructive and reflux uropathy, unspecified Status: Acute Consultants Dr. Monet Stack - GI Dr. Drew Butt - Urology Brief History This a 57-year-old male patient with past medical history which includes asthma , nicotine dependence, EtOH abuse, hepatitis C, alcoholic fatty liver, hyperlipidemia. The patient presents to the emergency department for difficulty with urinating. The patient was evaluated at [facility] yesterday and was noted to be in acute renal failure with a creatinine of 11 and an elevated potassium of 6.5. The patient was going to be admitted to [facility] yesterday, Dr. Jaimes had discussed the patient with nephrology, urology, and Dr. Graham. However, the patient had to leave AGAINST MEDICAL ADVICE so he could take care of his dogs and stated he would be back in the a.m. The patient states he has had a difficulty with urination since he was a child, he had bedwetting issues at the age of 4. He states he had several instrumentation procedures at the age of 4 and has had difficulty urinating since then. The patient states when he urinates he has a pinch his penis usp down, then has to squeeze the head to urinate. He states he has difficulty urinating fully and has had a distended lower abdomen for the last 4- 5 years which she initially attributed to drinking beer. He does complain of lethargy and body aches. He denies any acute chest pain, shortness of breath, fevers, chills, diarrhea, constipation, nausea or vomiting. CBC/BMP: 11/30/17 0543 11/30/17 0543 Significant Findings Laboratory Tests Test 11/28/17 06:39 11/29/17 07:17 11/30/17 05:43 Red Blood Count 2.33 MIL/MM3 (4.50-5.90) 2.90 MIL/MM3 (4.50-5.90) 2.90 MIL/MM3 (4.50-5.90) Hemoglobin 7.1 GM/DL (13.0-17.0) 9.0 GM/DL (13.0-17.0) 8.8 GM/DL (13.0-17.0) Hematocrit 21.1 % (39.0-51.0) 25.8 % (39.0-51.0) 25.9 % (39.0-51.0) Neutrophils (%) (Auto) 96.3 % (16.0-70.0) 92.9 % (16.0-70.0) 91.6 % (16.0-70.0) Lymphocytes (%) (Auto) 1.7 % (9.0-44.0) 2.8 % (9.0-44.0) 3.9 % (9.0-44.0) Lymphocytes # (Auto) 0.1 TH/MM3 (1.0-4.8) 0.2 TH/MM3 (1.0-4.8) 0.2 TH/MM3 (1.0-4.8) Blood Urea Nitrogen 68 MG/DL (7-18) 72 MG/DL (7-18) 70 MG/DL (7-18) Creatinine 6.95 MG/DL (0.60-1.30) 6.28 MG/DL (0.60-1.30) 5.49 MG/DL (0.60-1.30) Random Glucose 135 MG/DL (74-106) 112 MG/DL (74-106) Potassium Level 3.3 MEQ/L (3.5-5.1) 3.4 MEQ/L (3.5-5.1) Anion Gap 17 MEQ/L (5-15) Estimat Glomerular Filtration Rate 8 ML/MIN (>89) 9 ML/MIN (>89) 11 ML/MIN (>89) Calcium Level 8.3 MG/DL (8.5-10.1) Imaging Last Impressions Renal Ultrasound 11/27/17 0000 Signed Impressions: CONCLUSION: 1. Persistent hydronephrosis bilaterally despite placement of the Iraheta cathet er and decompression of the urinary bladder. The bladder wall is diffusely thic kened. I cannot exclude ureteral obstruction bilaterally. Consider nuclear medi cine study. Chest X-Ray 11/25/17 1141 Signed Impressions: CONCLUSION: Hyperinflation. PE at Discharge GENERAL: This is a thin, well-developed patient, in no apparent distress. CARDIO: Regular RESP: CTA bilaterally. ABD: +BS, soft, non-tender, nondistended. : Iraheta in place draining blood tinged urine EXT: Extremities without clubbing, cyanosis, or edema. NEURO: Alert & Oriented x4 to person, place, time, situation. Moves all ext x4 Hospital Course TRISHA (acute kidney injury) - Patient is a 57 y/o male with asthma, nicotine dependence, EtOH abuse, hepatitis C, alcoholic fatty liver, hyperlipidemia. The patient presents to the emergency department for difficulty with urinating. Pt found to have TRISHA with Creatinine 10.55 at admission. TRISHA likely secondary to obstructive uropathy. Per ER physician urinary bladder 4 cm above umbilicus on initial exam. CT abdomen/pelvis on 11/24/2017 reviewed and reveals pronounced bladder dilation and bladder hydronephrosis. Iraheta catheter placed in emergency department 1.5 L returned then iraheta was clamped. Pt started on Flomax 0.4 mg QHS. Consultation placed to urology, no surgical intervention at this time. Recommend DC patient with Iraheta in place and outpatient follow up with Urology. Renal US (11/27) --> persistent hydronephrosis bilaterally despite placement of Iraheta catheter and decompression of the urinary bladder the bladder wall is diffusely thickened. I cannot exclude urethral obstruction bilaterally. Consider nuclear medicine study. On 11/28, case discussed with Dr. Butt. He is aware and has reviewed the US as well as the creatinine. Dr. Butt states he will continue to follow this patient in his clinic after DC, no need to do nuclear medicine study at this time. Pt was continued on IVF hydration. Trending of his labs noted creatinine was 10.55 (11/25) -> 9.55 (11/26) -> 9.15 ( 1536) -> 7.72 (11/27) -> 6.95 (11/28) --> 6.28 (11/29) --> 5.49 (11/30). Pt will be discharged with the Iraheta cath in place. We will arrange for [facility] for help with iraheta care and repeat labs (CBC and BMP) on 12/04/[address] Butt Anemia - Pt noted to be anemic at admission and felt to most likely be secondary to blood loss from Iraheta and rectal bleeding as well as hydration. Repeat hgb 7.1, hct 21.1 on 11/28 and pt was given 2 units PRBCs on 11/28. Recheck CBC on 11/29 with Hgb 9.0 and on the day of discharge the Hgb was 8.8. This will be monitored as an outpt. Hyponatremia- resolved EtOH abuse - Patient is a daily EtOH user. This resolved with IVF and adequate oral intake. Patient was counseled and encouraged to abstain from alcohol. Recommended AA. During the admission pt was placed on CIWA protocol and Librium 25mg TID PRN Tobacco dependency - Patient counseled encouraged to abstain. Nicotine patch was given and pt can obtain this OTC upon discharge to continue. COPD exacerbation - During admission pt had some wheezing and felt to likely be having a COPD exacerbation. On 11/27 pt was started on Solu-Medrol 60 mg IV Q12H. This was transitioned to prednisone 30 mg PO BID on 11/28. He was given Duonebs Q6H WA and Q2H PRN. Upon discharge pt will need to continue to taper of Prednisone 20mg po BID x 2 days, then decrease to 20mg once daily x 2 days, then decrease to 10mg once daily x 2 days, then stop. Steroid induced hyperglycemia - Blood glucose elevate on BMP likely reactive due to steroids. Pt was given coverage with SSI during admission. Hyperkalemia - Patients potassium was 5.7 on 11/26 and he was given Kayexalate 30 gm ordered x 1. Recheck on 11/26 with improvement in potassium to 4.1. Rectal bleeding - Patient has had issues intermittently with rectal bleeding. Patient reports this occurs 1-3 times per week. GI consulted during this admission for evaluation of the rectal bleeding. Pt underwent evaluation with Colonoscopy on --> Diverticulum in the sigmoid colon, descending colon, and ascending colon , small sessile polyp was found in the rectum, large internal and external hemorrhoids. GI felt the rectal bleeding likely from hemorrhoids. GI recommending 1 year repeat colonoscopy. Patient would likely need hemorrhoids addressed further and will need follow up with colorectal surgery outpatient after DC. We will have him followup outpt with [facility] for evaluation of his hemorrhoids Hepatitis C - Pt was reportedly diagnosed 7-8 years ago, treatment naive. We will have him followup outpt with GI in 2-3 weeks for continued monitoring of his LFTs and once he is alcohol free for at least 6 months he could consider evaluation for Hep C treatment. Pt does not have an assigned [facility] PCP. He was instructed to call members services upon discharge to establish with a local [facility] PCP as he will need continued maintenance of his chronic medical issues. Pt Condition on Discharge: Stable Discharge Disposition: Disch w/ Home Health Serv Discharge Instructions DIET: Follow Instructions for: Heart Healthy Diet Activities you can perform: Regular-No Restrictions Follow up Referrals: Colorectal Surgery - 2 Weeks [facility] - 3 Weeks @ [facility] PCP Follow-up - 1 Week with [facility] PCP Urology - 1 Week with Drew Butt MD New Medications: Albuterol Neb (Albuterol Neb) 2.5 Mg/3 Ml Neb 2.5 MG NEB TID NEB PRN for SHORTNESS OF BREATH, #60 NEBULE 0 Refills Ipratropium Neb (Ipratropium Neb) 0.5 Mg/2.5 Ml Amp 0.5 MG NEB TID NEB PRN for SHORTNESS OF BREATH, #120 NEBULE 0 Refills Nebulizer/Adult Mask (Nebulizer/Adult Mask) 1 Kit Kit KIT .XX DIRECTED for Breathing Treatment, #1 0 Refills Folic Acid (Folic Acid) 1 Mg Tablet 1 MG PO DAILY for supplement, #30 TAB Pantoprazole (Pantoprazole) 40 Mg Tab 40 MG PO DAILY for gerd, #30 TAB Prednisone (Prednisone) 20 Mg Tab 30 MG PO DIRECTED for copd exacerbation, #8 TAB 20mg twice daily x 2 days, then decrease to 20mg once daily x 2 days, then decrease to 10mg once daily x 2 days, then stop. Tamsulosin (Flomax) 0.4 Mg Cap 0.4 MG PO HS for urinary obstruction, #30 CAP Thiamine HCl (Gnp Vitamin B-1) 100 Mg Tab 100 MG PO DAILY for supplement, #30 TAB Kimberly Levine Nov 30, 2017 10:38
[2017-11-30 12:00] VITALS: BP 179/97; PULSE 72; RESP 18; TEMP 97.6; O2SAT 100
== END 2017-11-30 15:55 | disposition home or self-care (01) | DRG 683 ==
LOC: NEPE 09:46 → NEDA 12:28 → N07B 13:14
PROVIDERS: ADMIT Hospitalist; ATTEND Hospitalist
PROC: 0DBP8ZZ Excision of Rectum, Via Natural or Artificial Opening Endoscopic (ICD-10-PCS; principal; 2017-11-27 17:00)
PROC: 30233N1 Transfusion of Nonautologous Red Blood Cells into Peripheral Vein, Percutaneous Approach (ICD-10-PCS; 2017-11-28)
DX: N17.9 Acute kidney failure, unspecified (principal); E87.1 Hypo-osmolality and hyponatremia; E87.2 Acidosis; E87.5 Hyperkalemia; K70.0 Alcoholic fatty liver; K62.5 Hemorrhage of anus and rectum; F10.20 Alcohol dependence, uncomplicated; D50.0 Iron deficiency anemia secondary to blood loss (chronic); N13.9 Obstructive and reflux uropathy, unspecified; E78.5 Hyperlipidemia, unspecified; B19.20 Unspecified viral hepatitis C without hepatic coma; F17.200 Nicotine dependence, unspecified, uncomplicated; N13.30 Unspecified hydronephrosis; R73.9 Hyperglycemia, unspecified; K64.8 Other hemorrhoids; K64.4 Residual hemorrhoidal skin tags; K59.09 Other constipation; K57.30 Diverticulosis of large intestine without perforation or abscess without bleeding; Z88.8 Allergy status to other drugs, medicaments and biological substances; R82.99 Other abnormal findings in urine; Z53.29 Procedure and treatment not carried out because of patient's decision for other reasons; J44.9 Chronic obstructive pulmonary disease, unspecified
CPT/HCPCS: 36430; 51703; 71045; 76775; 80048; 80053; 81001; 82948; 83735; 84100; 85007; 85025; 85027; 86850; 86900; 86901; 86920; 87086; 88305; 93005; 94640; 94664; J1815; J2250; J2930; J7030; J7050; J7512; P9016

== ENCOUNTER 2017-12-01 18:59 | Emergency (ER) | payer OTHER ==
[~2017-12-01 18:59] MED LIST changes: +ALBU0.08 NEB; -CIPR-9 PO; +FOLI1TAB6 PO; +IPRA0.02 NEB; +NEBULIZER/ADULT1 KIT; +PANT40TA3 PO; +PRED20 PO; +TAMS5CAP PO; +THIA100 PO; -VENTAER INH
[2017-12-01 19:08] VITALS: BP 170/94; PULSE 80; RESP 18; TEMP 98.3; O2SAT 99
[2017-12-01 20:02] VITALS: BP 198/116; PULSE 82; RESP 15; O2SAT 100
[2017-12-01] MEDS ORDERED: oxyCODONE/ACETAMINOPHEN 5 MG/325 MG TAB PO ONE (20:15)
[2017-12-01 20:46] LABS: AUTOMATED NEUTROPHIL # 6.2 TH/MM3 (1.8-7.7); BASOPHIL % 0.2 % (0.0-2.0); EOSINOPHIL # 0.1 TH/MM3 (0-0.4); EOSINOPHIL % 1.3 % (0.0-4.0); HEMATOCRIT 31.9 % (39.0-51.0); HEMOGLOBIN 10.6 GM/DL (13.0-17.0); LYMPH % 10.8 % (9.0-44.0); LYMPHOCYTE # 0.8 TH/MM3 (1.0-4.8); MEAN CELL VOLUME 90.3 FL (80.0-100.0); MEAN CORPUSCULAR HEMOGLOBIN 30.1 PG (27.0-34.0); MEAN CORPUSCULAR HGB CONC 33.3 % (32.0-36.0); MONO % 8.8 % (0.0-8.0); MONOCYTE # 0.7 TH/MM3 (0-0.9); NEUT % 78.9 % (16.0-70.0); PLATELET COUNT 291 TH/MM3 (150-450); RED BLOOD COUNT 3.54 MIL/MM3 (4.50-5.90); RED CELL DISTRIBUTION WIDTH 14.7 % (11.6-17.2); WHITE BLOOD COUNT 7.8 TH/MM3 (4.0-11.0)
[2017-12-01 21:11] LABS: BILIRUBIN, URINE NEG (NEG); BLOOD, URINE MOD (NEG); GLUCOSE,URINE NEG (NEG); KETONE, URINE NEG (NEG); NITRITE,URINE NEG (NEG); SQUAMOUS EPITHELIAL CELL URINE <1 /hpf (0-5); URINE COLOR Straw (YELLW/STRAW); URINE LEUKOCYTE ESTERASE SMALL (NEG)
[2017-12-01 21:12] LABS: CALCIUM 8.3 MG/DL (8.5-10.1); CREATININE 5.74 MG/DL (0.60-1.30)
--- NOTE | 2017-12-01 23:16 | PD ---
HPI Chief Complaint: Complaint Time Seen by Provider: 20:02 Travel History International Travel<30 days: No Contact w/Intl Traveler<30days: No Traveled to known affect area: No History of Present Illness HPI 57-year-old male with urinary retention. He was discharged from the hospital yesterday with a Iraheta catheter and has been unable to urinate since earlier today Patient has newly diagnosed renal failure with a creatinine over 5. He has no other symptoms at this time except suprapubic pain from a blocked iraheta PFSH Past Medical History Asthma: Yes Cardiovascular Problems: No COPD: Yes Diminished Hearing: No Genitourinary: No Musculoskeletal: No Neurologic: No Psychiatric: No Reproductive: No Respiratory: Yes Immunizations Current: Yes ?: Not Past Surgical History Other Surgery: Yes Social History Alcohol Use: Yes (BEER DAILY) Tobacco Use: Yes (1.5 PPD) Substance Use: No Allergies-Medications (Allergen,Severity, Reaction): Coded Allergies: benzoin (Unverified Allergy, Severe, RASH, 11/25/17) ness balsam (Unverified Allergy, Severe, UNKNOWN PER PT, 11/25/17) storax (Unverified Allergy, Unknown, DOES NOT KNOW, 11/25/17) Reported Meds & Prescriptions Reported Meds & Active Scripts Active No Active Prescriptions or Reported Medications Review of Systems Except as stated in HPI: all other systems reviewed are Neg General / Constitutional: No: Fever, Chills Genitourinary: Positive: Decreased Urinary Output Physical Exam Narrative GENERAL: 57-year-old male in acute distress SKIN: Focused skin assessment warm/dry. HEAD: Atraumatic. Normocephalic. EYES: Pupils equal and round. No scleral icterus. No injection or drainage. ENT: No nasal bleeding or discharge. Mucous membranes pink and moist. NECK: Trachea midline. No JVD. CARDIOVASCULAR: Regular rate and rhythm. No murmur appreciated. RESPIRATORY: No accessory muscle use. Clear to auscultation. Breath sounds equal bilaterally. GASTROINTESTINAL: Abdomen soft, suprapubic tenderness, nondistended. Hepatic and splenic margins not palpable. MUSCULOSKELETAL: No obvious deformities. No clubbing. No cyanosis. No edema. Data Data Last Documented VS Vital Signs Date Time Temp Pulse Resp B/P (MAP) Pulse Ox O2 Delivery O2 Flow Rate FiO2 12/01/17 20:02 82 15 198/116 (143) 100 Room Air 12/01/17 19:08 98.3 Orders Orders Complete Blood Count With Diff (12/01/17 20:11) Basic Metabolic Panel (Bmp) (12/01/17 20:11) Urinalysis - C+S If Indicated (12/01/17 20:11) Oxycodone-Acetamin 5-325 Mg (Percocet (12/01/17 20:15) Urinary Catheter Insert/Apply (12/01/17 23:08) Labs Laboratory Tests Test 12/01/17 20:02 12/01/17 20:10 Urine Color Straw Urine Turbidity CLEAR Urine pH 6.0 Urine Specific [place] 1.006 Urine Protein 30 mg/dL Urine Glucose (UA) NEG mg/dL Urine Ketones NEG mg/dL Urine Occult Blood MOD Urine Nitrite NEG Urine Bilirubin NEG Urine Urobilinogen LESS THAN 2 mg/dL Urine Leukocyte Esterase SMALL Urine RBC 20 /hpf Urine WBC 2 /hpf Urine Squamous Epithelial Cells <1 /hpf Microscopic Urinalysis Comment CULT NOT INDICATED White Blood Count 7.8 TH/MM3 Red Blood Count 3.54 MIL/MM3 Hemoglobin 10.6 GM/DL Hematocrit 31.9 % Mean Corpuscular Volume 90.3 FL Mean Corpuscular Hemoglobin 30.1 PG Mean Corpuscular Hemoglobin Concent 33.3 % Red Cell Distribution Width 14.7 % Platelet Count 291 TH/MM3 Mean Platelet Volume 8.0 FL Neutrophils (%) (Auto) 78.9 % Lymphocytes (%) (Auto) 10.8 % Monocytes (%) (Auto) 8.8 % Eosinophils (%) (Auto) 1.3 % Basophils (%) (Auto) 0.2 % Neutrophils # (Auto) 6.2 TH/MM3 Lymphocytes # (Auto) 0.8 TH/MM3 Monocytes # (Auto) 0.7 TH/MM3 Eosinophils # (Auto) 0.1 TH/MM3 Basophils # (Auto) 0.0 TH/MM3 CBC Comment DIFF FINAL Differential Comment Blood Urea Nitrogen 75 MG/DL Creatinine 5.74 MG/DL Random Glucose 89 MG/DL Calcium Level 8.3 MG/DL Sodium Level 137 MEQ/L Potassium Level 4.3 MEQ/L Chloride Level 102 MEQ/L Carbon Dioxide Level 23.0 MEQ/L Anion Gap 12 MEQ/L Estimat Glomerular Filtration Rate 10 ML/MIN MDM Medical Decision Making Medical Screen Exam Complete: Yes Emergency Medical Condition: Yes Differential Diagnosis Urinary retention Narrative Course Patient was seen and evaluated in the emergency department. Iraheta catheter was replaced and he had good urinary output. Review of the patient's discharge medications and prescriptions was done and he seems to have everything in line but for some reason did not have his prescriptions filled today. Patient is advised to follow-up with his regular doctors as directed and to please fill the prescriptions as soon as possible Diagnosis Primary Impression: Urinary retention Patient Instructions: General Instructions, Urinary Retention in Men (DC) Scripts No Active Prescriptions or Reported Meds Disposition: 01 DISCHARGE HOME Condition: Good Pasha Giron DO Dec 01, 2017 23:16
== END 2017-12-01 23:55 | disposition home or self-care (01) ==
LOC: NEPC 18:59
DX: R33.9 Retention of urine, unspecified (principal); F17.200 Nicotine dependence, unspecified, uncomplicated; N19 Unspecified kidney failure
CPT/HCPCS: 51702; 80048; 81001; 85025